=== PATIENT | female | born 1950 | race Caucasian/White ===

== ENCOUNTER → 2016-11-20 | Outpatient (CLI) | payer MEDICARE, BC ==
--- NOTE | 2016-11-20 14:47 | MR ---
EXAMINATION TYPE: MR brain wo con DATE OF EXAM: 11/20/2016 COMPARISON: 09/20/2015 HISTORY: Hx of stroke T1-weighted sagittal, T2, FLAIR, and diffusion axial, and T2 coronal coronal views of the brain are s ubmitted. There is no evidence of acute ischemia on diffusion imaging. There is an area of abnormal signal with in the posterior right parietal lobe which is stable from the previous exam compatible with remote st roke. There is mild generalized degenerative change. Changes of chronic sinusitis with nasal septal deviati on noted. No midline shift or mass effect. Area of possible blooming artifact within the right temporal lobe is stable from the previous exam. This could be vascular or related to previous remote hemorrhage. Susp ect is more likely vascular. Areas of abnormal signal in the basal ganglia bilaterally may represent prominent Virchow-Tai space s or remote tiny lacunar infarctions. Nonspecific white matter changes are seen with a few scattered areas of less than 5 mm abnormal signa l. Partially empty sella turcica noted. Craniocervical junction maintained. IMPRESSION: 1. No acute intracranial process 2. Stable remote-appearing infarct right parietal lobe posteriorly. 3. Nonspecific white matter changes most typical remote microvascular ischemia. 4 chronic sinusitis 5 partially empty sella turcica
== END | disposition home or self-care (01) ==
LOC: RADMRIMAIN 13:25
PROVIDERS: ATTEND Psychiatry & Neurology Neurology
DX: Z09 Encounter for follow-up examination after completed treatment for conditions other than malignant neoplasm (principal); Z86.73 Personal history of transient ischemic attack (TIA), and cerebral infarction without residual deficits
CPT/HCPCS: 70551

== ENCOUNTER → 2016-12-21 | Outpatient (CLI) | payer MEDICARE, BC ==
[2016-12-21 15:10] LABS: Glucose,Whole Blood 80 mg/dL (75-99)
[2016-12-21 15:27] VITALS: BP 114/55; PULSE 73; RESP 16; TEMP 98.3; BMI 40.0
--- NOTE | 2017-01-15 14:35 | P.HPBAR ---
Bariatric H&P - History & Physicial H&P Date: 12/21/16 History & Physicial: Visit/CC: Initial Visit Patient initial contact: Initial weight: 105.715 kg Initial weight in pounds: 233.06 Height: 5 ft 4 in Initial BMI: 39.9 Last weight: Current weight: 105.715 kg Current weight in pounds: 233.00 Current BMI: 40.0 [place] body weight (based on NIH guidelines): 54.431 kg Excess body weight loss: 0.0% The patient is a 66 year-old F who presents for Bariatric Assessment. the patient resents today for initial consultation for sleeve yesterday. She's had lifetime pros obesity. She is developed severe colitis related to morbid obesity. Past Medical History Past Medical History: CVA/TIA, Diabetes Mellitus, Fibromyalgia, Hyperlipidemia, Hypertension, Thyroid Disorder Additional Past Medical History / Comment(s): Hx severe case of Shingles, Osteoporosis, Massive stroke 07/20/2012, neuropathy, Vitamin B12 deficiancy, hypothyroidism, insomnia History of Any Multi-Drug Resistant Organisms: None Reported Past Surgical History: Hysterectomy, Joint Replacement Additional Past Surgical History / Comment(s): Left Knee, right shoulder partial replacment, carpal tunnel right and left, throat surgery for acid reflux Past Anesthesia/Blood Transfusion Reactions: No Reported Reaction Past Psychological History: Anxiety Smoking Status: Never smoker Past Alcohol Use History: None Reported Past Drug Use History: None Reported - Past Family History Brother(s) Family Medical History: CVA/TIA, Myocardial Infarction ([place]) Additional Family Medical History / Comment(s): [place] x2 Surgical - Exam Vital Signs Temp Pulse Resp BP 98.3 F 73 16 114/55 12/21/16 15:08 12/21/16 15:08 12/21/16 15:08 12/21/16 15:08 - General well developed - Eyes PERRL - ENT normal pinna - Neck no masses - Respiratory normal expansion - Cardiovascular Rhythm: regular Bariatric Assessment & Plan Plan: Morbid obesity. Had a lengthy discussion with the patient regarding sleeve gastrectomy. I would over the risks and benefits of procedure. I discussed with her the risk of staple line disruption, scarring or bleeding. Patient was scheduled for EGD. Bariatric Checklist Checklist: Plan: Checklist: EGD: 1. Hiatal hernia: 2. H. Pylori: HgbA1c: Vitamin D: Smoking: Never smoker Primary care physician referral: [facility] Psychiatry clearance: Cardiology clearance: Sleep study: Diet journal: VTE risk score: VTE risk level: Rehab needs at discharge:
== END | disposition home or self-care (01) ==
LOC: BARWHC3 14:32
PROVIDERS: ATTEND Surgery
DX: Z48.815 Encounter for surgical aftercare following surgery on the digestive system (principal); E66.01 Morbid (severe) obesity due to excess calories; Z98.84 Bariatric surgery status
CPT/HCPCS: 99211

== ENCOUNTER → 2017-02-22 | Outpatient (CLI) | payer MEDICARE, BC ==
--- NOTE | 2017-02-22 10:54 | FL ---
EXAMINATION: Cervical and Thoracic Esophagram DATE OF EXAM: 02/22/2017 CLINICAL INDICATION: 66-year-old female gastroesophageal reflux disease, hoarseness for the last 16 m onths. Patient reports prior flap surgery for hiatal hernia. COMPARISON: Total Fluoroscopy Time: 1.6 minutes. Total images: 21 FINDINGS: The swallowing mechanism is normal. There is some possible nodularity in the region of the hypopharyn x with heterogeneous coating. The thoracic portion has a normal course and caliber. There is some blunting of the normal secondary peristaltic waves that results in slight retention of contrast in the esophagus. No significant tertiary waves are seen. The mucosa is normal and no persistent filling defect is encountered. There is focal indentation and possible wrap at the GE junction which should be correlated clinically . No hiatal hernia seen. Gastroesophageal reflux could not be elicited with Valsalva maneuvers. IMPRESSION: 1. Some heterogeneous coating in the region of the hypopharynx. This may be secondary to inflammation or polyps. Correlate with findings during direct visualization. 2. Blunted secondary stripping waves allows for some delay in clearance of contrast from the esophag us. 3. Some deformity at the GE junction suspected to be on a post surgical basis with a wrap. No hiatal hernia. Valsalva maneuver failed to elicit gastroesophageal reflux.
== END ==
LOC: RADFLWHC 07:33
PROVIDERS: ATTEND Surgery
DX: K21.9 Gastro-esophageal reflux disease without esophagitis (principal)
CPT/HCPCS: 74220

== ENCOUNTER 2017-02-23 08:14 | Day surgery (SDC) | payer MEDICARE, BC ==
[2017-02-19 13:18] VITALS: BMI 39.4
[~2017-02-23 08:14] MED LIST: LACTATED RINGERS 1,000 ML IV SCH
[2017-02-23 08:39] VITALS: RESP 18; TEMP 97.8
[2017-02-23] MEDS ORDERED: LIDOCAINE 1% 20 ML VIAL (10MG/ML) FOR IV START INTRADERMA ONE (08:41)
[2017-02-23 08:53] LABS: Glucose,Whole Blood 95 mg/dL (75-99)
[2017-02-23] MEDS ORDERED: LIDOCAINE 1% INJ 10MG/ML (20 ML MDV) ONE (10:30)
[2017-02-23] MEDS ORDERED: PROPOFOL 10 MG/ML 20 ML VIAL IV ONE (10:30)
--- NOTE | 2017-02-23 10:56 | P.GSHP ---
History of Present Illness H&P Date: 02/23/17 Chief Complaint: Epigastric pain This is a 66-year-old female who has complaints of epigastric pain. She was a safer EGD. Her recent esophagram shows no evidence of obstruction or reflux. Past Medical History Past Medical History: CVA/TIA, Diabetes Mellitus, Fibromyalgia, Hyperlipidemia, Hypertension, Osteoarthritis (OA), Sleep Apnea/CPAP/BIPAP, Thyroid Disorder Additional Past Medical History / Comment(s): Hx of shingles, has nerve damage from shingles, CVA 2012 (no residual effects),sleep apnea (no machine). SOB, abdominal pain occasionally from shingles nerve damage, neuropathy xavi feet History of Any Multi-Drug Resistant Organisms: None Reported Past Surgical History: Hernia Repair, Hysterectomy, Joint Replacement Additional Past Surgical History / Comment(s): Left Knee surgery as child, right shoulder partial replacement, carpal tunnel right and left, Hiatal Hernia repair. EGD, colonoscopy Past Anesthesia/Blood Transfusion Reactions: Previous Problems w/ Anesthesia Additional Past Anesthesia/Blood Transfusion Reaction / Comment(s): states told "difficult intubation" but Dr Childers did previous EGD with no problems, pt could not elaborate specifics. Not done at [facility]. Smoking Status: Never smoker - Past Family History Brother(s) Family Medical History: CVA/TIA, Myocardial Infarction ([place]) Additional Family Medical History / Comment(s): [place] x2 Mother Family Medical History: Cancer Medications and Allergies Home Medications Medication Instructions Recorded Confirmed Type Ascorbic Acid [Vitamin C] 500 mg PO DAILY 09/24/16 02/23/17 History Atorvastatin [Lipitor] 40 mg PO DAILY 09/24/16 02/19/17 History Clopidogrel [Plavix] 75 mg PO DAILY 09/24/16 02/23/17 History Ergocalciferol (Vitamin D2) 50,000 unit PO TH 09/24/16 02/19/17 History [Vitamin D2] Gabapentin [Neurontin] 300 mg PO BID 09/24/16 02/19/17 History Levothyroxine Sodium [Tirosint] 88 mcg PO DAILY 09/24/16 02/23/17 History Losartan/Hydrochlorothiazide 1 tab PO DAILY 09/24/16 02/23/17 History [Losartan-Hctz 100-12.5 mg Tab] Metoprolol Tartrate [Lopressor] 50 mg PO DAILY 09/24/16 02/23/17 History Morphine Sulfate [Yomaira] 30 mg PO BID PRN 09/24/16 02/23/17 History Multivitamins, Thera [Multivitamin 1 tab PO DAILY 09/24/16 02/19/17 History (formulary)] Potassium Chloride [K-Tab ER] 10 meq PO BID 09/24/16 02/23/17 History Vitamin E 100 unit PO DAILY 09/24/16 02/19/17 History clonazePAM [Clonazepam] 2 mg PO DAILY PRN 09/24/16 02/23/17 History traZODone HCL [Desyrel] 100 mg PO HS 09/24/16 02/23/17 History amLODIPine BESYLATE [Norvasc] 5 mg PO DAILY 12/24/16 02/23/17 History metFORMIN HCL [Glucophage] 500 mg PO DAILY 12/31/16 02/23/17 History Morphine Sulfate ER [Ms Contin 30 mg PO Q12HR 02/19/17 02/23/17 History 30Mg] Allergies Allergy/AdvReac Type Severity Reaction Status Date / Time ibuprofen [From Motrin] Allergy Unknown Itching, Verified 02/19/17 11:43 Throat swelling milk AdvReac Abdominal Verified 02/19/17 11:43 Pain phenytoin [From Dilantin] AdvReac Rash/Hives Verified 02/19/17 11:43 Arthrotic AdvReac Rash/Hives Uncoded 02/19/17 11:43 Surgical - Exam Vital Signs Temp Pulse Resp BP Pulse Ox 97.8 F 75 18 124/73 96 02/23/17 08:38 02/23/17 08:38 02/23/17 08:38 02/23/17 08:38 02/23/17 08:38 - General well developed, no distress - Eyes PERRL - ENT normal pinna - Neck no masses - Respiratory normal expansion - Cardiovascular Rhythm: regular - Abdomen Mild epigastric tenderness Abdomen: soft Assessment and Plan Plan: Epigastric pain. We'll perform EGD.
--- NOTE | 2017-02-23 10:58 | P.OP ---
Date of Procedure: 02/23/17 Preoperative Diagnosis: Epigastric pain Postoperative Diagnosis: Antral gastritis No evidence of hiatal hernia No evidence of reflux esophagitis Procedure(s) Performed: EGD Anesthesia: MAC Surgeon: Carlos Childers Pathology: other (Antrum) Condition: stable Disposition: PACU Description of Procedure: Patient's placed on the operating table in the lateral position. She received IV sedation. The gastric was placed oropharynx passed in the esophagus into the stomach. Scope was then placed through the pylorus. The first and second portion of the duodenum appeared normal. Scope was then brought back the antrum and this appeared mildly inflamed. The scope was retroflexed there is no evidence of a recurrent hiatal hernia. Patient appears fundoplication wrap located at the distal esophagus. The GE junction was at 40 cm. Due the patient 's complaints of epigastric pain a 20 mm balloon was placed across GE junction. There is known to any stricture. The distal esophagus appeared normal. The proximal esophagus appeared normal. Scope was withdrawn for patient.
[2017-02-23 11:33] VITALS: BP 131/69; PULSE 74
== END 2017-02-23 11:39 | disposition home or self-care (01) ==
LOC: ORWHC2ENDO 08:14
PROVIDERS: ATTEND Surgery
DX: K29.50 Unspecified chronic gastritis without bleeding (principal); R10.13 Epigastric pain; E11.9 Type 2 diabetes mellitus without complications; M79.7 Fibromyalgia; E78.5 Hyperlipidemia, unspecified; I10 Essential (primary) hypertension; M19.90 Unspecified osteoarthritis, unspecified site; G47.30 Sleep apnea, unspecified; E07.9 Disorder of thyroid, unspecified; Z86.73 Personal history of transient ischemic attack (TIA), and cerebral infarction without residual deficits; Z79.84 Long term (current) use of oral hypoglycemic drugs; Z79.02 Long term (current) use of antithrombotics/antiplatelets; Z79.899 Other long term (current) drug therapy; Z88.6 Allergy status to analgesic agent
CPT/HCPCS: 88305; 88342; 43239; 43249; J2001; J2704; C1726

== ENCOUNTER → 2017-03-17 | Outpatient (CLI) | payer MEDICARE, BC ==
--- NOTE | 2017-03-17 12:07 | NM ---
EXAMINATION TYPE: NM hepatobiliary w EF DATE OF EXAM: 03/17/2017 COMPARISON: NONE HISTORY: Abdominal pain, decreased appetite and history of cholelithiasis. TECHNIQUE: After the intravenous administration of 5.6 mCi Tc 99m Mebrofenin hepatobiliary scintigrap hy is performed. Immediate images post injection. FINDINGS: There is satisfactory initial accumulation of tracer by the liver. The gallbladder is visualized wit hin 42 minutes. The small bowel activity is noted within minutes. At one hour 8 ounces of oral ensu re plus is given to mimic CCK and gallbladder ejection fraction is calculated at 86 %, in the normal range. Therefore there is no scintigraphic evidence of cystic or common bile duct obstruction to sug gest acute cholecystitis or gallbladder dyskinesia. IMPRESSION: 1. Visualization of the gallbladder is slightly delayed at 42 minutes, upper limits of normal with cr iteria for cholecystitis of greater than 1 hour. No evidence of acute cholecystitis or cystic duct ob struction. 2. No evidence of biliary dyskinesia with ejection fraction of 86%.
== END | disposition home or self-care (01) ==
LOC: RADNMMAIN 03-16 06:30
PROVIDERS: ATTEND Surgery
DX: K81.1 Chronic cholecystitis (principal)
CPT/HCPCS: 78226; A9537

== ENCOUNTER → 2017-03-17 | Outpatient (CLI) | payer MEDICARE, BC | END | disposition home or self-care (01) | LOC: RADNMMAIN 08:36 | PROVIDERS: ATTEND Surgery | DX: Z53.9 Procedure and treatment not carried out, unspecified reason (principal) ==

== ENCOUNTER 2017-04-20 15:02 | Observation (INO) | payer MEDICARE, BC ==
[2017-04-20] MEDS ORDERED: IPRATROPIUM-ALBUTEROL 3 ML NEB INHALATION STA (16:03)
[2017-04-20 16:25] LABS: Basophils # (A) 0.1 k/uL (0-0.2); Basophils % (A) 0 %; CH 33.4; CHCM 33.3; Eosinophils # (A) 0.1 k/uL (0-0.7); Eosinophils % (A) 1 %; HDW 2.43; HGB 12.4 gm/dL (11.4-16.0); Luc # (Auto) 0.13; Luc % (Auto) 1; Lymphocytes # (A) 2.2 k/uL (1.0-4.8); Lymphocytes % (A) 15 %; MCH 32.2 pg (25.0-35.0); MCHC 31.9 g/dL (31.0-37.0); Macrocytosis Slight; Mean Platelet Volume 7.9; Monocytes # (A) 0.7 k/uL (0-1.0); Monocytes % (A) 5 %; Neutrophils % (A) 78 %; RBC 3.86 m/uL (3.80-5.40); RDW 14.4 % (11.5-15.5); WBC 14.2 k/uL (3.8-10.6); WBC (Perox) 14.76
[2017-04-20 16:33] LABS: Anion Gap 8 mmol/L; Blood Urea Nitrogen 21 mg/dL (7-17); Calcium 10.2 mg/dL (8.4-10.2); Carbon Dioxide 31 mmol/L (22-30); Chloride 100 mmol/L (98-107); Glucose 102 mg/dL (74-99); Non-African American GFR(MDRD) 54 (>60 ml/min/1.73 sqM); Potassium 4.4 mmol/L (3.5-5.1); Sodium 139 mmol/L (137-145)
[2017-04-20 16:39] LABS: INR 0.9 (<1.2)
[2017-04-20 16:40] LABS: Prothrombin Time 9.4 sec (9.0-12.0)
[2017-04-20 16:48] LABS: Partial Thromboplastin Time 20.8 sec (22.0-30.0)
[2017-04-20] MEDS ORDERED: RX INFO: IV CONTRAST WAS GIVEN 1 EACH MISC MISCELLANE PRN (16:56)
--- NOTE | 2017-04-20 17:01 | ED ---
General Adult HPI - General Chief complaint: Upper Respiratory Infection Stated complaint: coughing up blood Time Seen by Provider: 04/20/17 15:57 Source: patient Mode of arrival: ambulatory Limitations: no limitations - History of Present Illness Initial comments: This 66-year-old white female presents with a complaint of hemoptysis. She apparently has had a small amount of bright red blood that she has been bringing up intermittently since 2:00 PM today. She has had occasional cough and occasional shortness of breath. She denies any history of COPD, asthma, or emphysema. She denies any use of tobacco. She further relates that she's had occasional shortness of breath over the past 2 years. She does relate that she' s had some recent sinus congestion and sinus problems. She states that she has had a hoarse voice for the last 1-2 days. She ended up having a laparoscopic cholecystectomy done yesterday at our hospital. She denies any known complications. There is no leg pain or swelling or history of DVT or PE. There is no chest pain or fevers. She called Dr. Childers's office today and they sent her to the ER for further evaluation. - Related Data Home Medications Medication Instructions Recorded Confirmed Ascorbic Acid [Vitamin C] 500 mg PO DAILY 09/24/16 04/20/17 Atorvastatin [Lipitor] 40 mg PO DAILY 09/24/16 04/20/17 Clopidogrel [Plavix] 75 mg PO DAILY 09/24/16 04/20/17 Ergocalciferol (Vitamin D2) 50,000 unit PO TH 09/24/16 04/20/17 [Vitamin D2] Gabapentin [Neurontin] 300 mg PO BID 09/24/16 04/20/17 Losartan/Hydrochlorothiazide 1 tab PO DAILY 09/24/16 04/20/17 [Losartan-Hctz 100-12.5 mg Tab] Metoprolol Tartrate [Lopressor] 75 mg PO BID 09/24/16 04/20/17 Multivitamins, Thera [Multivitamin 1 tab PO DAILY 09/24/16 04/20/17 (formulary)] Potassium Chloride [K-Tab ER] 10 meq PO BID 09/24/16 04/20/17 Vitamin E 100 unit PO DAILY 09/24/16 04/20/17 clonazePAM [Clonazepam] 1 - 2 mg PO HS PRN 09/24/16 04/20/17 traZODone HCL [Desyrel] 100 mg PO HS 09/24/16 04/20/17 amLODIPine BESYLATE [Norvasc] 5 mg PO DAILY 12/24/16 04/20/17 metFORMIN HCL [Glucophage] 500 mg PO DAILY 12/31/16 04/20/17 Morphine Sulfate ER [Ms Contin 30 mg PO Q12HR 02/19/17 04/20/17 30Mg] Levothyroxine Sodium [Synthroid] 88 mcg PO DAILY 04/15/17 04/20/17 Benzonatate [Tessalon Perles] 200 mg PO BID PRN 04/20/17 04/20/17 Morphine Sulfate Ir [Msir] 30 mg PO DAILY PRN 04/20/17 04/20/17 Allergies Allergy/AdvReac Type Severity Reaction Status Date / Time ibuprofen [From Motrin] Allergy Unknown WAS TOLD Verified 04/20/17 16:38 BY NOT TO TAKE- BECAUSE OF HER KIDNEYS milk AdvReac Abdominal Verified 04/20/17 16:38 Pain phenytoin [From Dilantin] AdvReac Rash/Hives Verified 04/20/17 16:38 Arthrotic AdvReac Rash/Hives Uncoded 04/20/17 15:07 Review of Systems ROS Statement: Those systems with pertinent positive or pertinent negative responses have been documented in the HPI. ROS Other: All systems not noted in ROS Statement are negative. Past Medical History Past Medical History: CVA/TIA, Diabetes Mellitus, Fibromyalgia, Hyperlipidemia, Hypertension, Osteoarthritis (OA), Sleep Apnea/CPAP/BIPAP, Thyroid Disorder Additional Past Medical History / Comment(s): Hx of shingles, has nerve damage from shingles, CVA 2012 -SOME RIGHT SIDED WEAKNESS,sleep apnea (no machine). SOB, neuropathy xvai feet, History of Any Multi-Drug Resistant Organisms: None Reported Past Surgical History: Cholecystectomy, Hernia Repair, Hysterectomy, Joint Replacement Additional Past Surgical History / Comment(s): Left Knee surgery as child, right shoulder partial replacement, carpal tunnel right and left, Hiatal Hernia repair. EGD, colonoscopy Past Anesthesia/Blood Transfusion Reactions: Previous Problems w/ Anesthesia Additional Past Anesthesia/Blood Transfusion Reaction / Comment(s): states told "difficult intubation" but Dr Childers did previous EGD with no problems, . Not done at [facility]. SHE STATES THE DIFFICULT INTUBATION WAS AFTER HER STROKE . Past Psychological History: Anxiety, Bipolar, Depression Smoking Status: Never smoker Past Alcohol Use History: None Reported Past Drug Use History: None Reported - Past Family History Brother(s) Family Medical History: CVA/TIA, Myocardial Infarction ([place]) Additional Family Medical History / Comment(s): [place] x2 Mother Family Medical History: Cancer General Exam - General Exam Comments Initial Comments: GENERAL: The patient is well nourished and well hydrated. VITAL SIGNS: Heart rate, blood pressure, respiratory rate reviewed as recorded in nurse's notes. EYES: Pupils are round and reactive. Extraocular movements are intact. No conjunctival / lid redness or swelling. ENT: No external evidence of injury, swelling, or ecchymosis. Airway is patent. Throat is clear. A slight hoarse voice as noted. NECK: Nontender. No swelling or evidence of injury. No subcutaneous emphysema. Trachea is midline. No thyroid mass. HEART: Regular rate and rhythm. Good peripheral pulses. LUNGS/CHEST: Breath sounds clear and equal bilaterally. No rales, rhonchi, or wheezes. No ecchymosis, subcutaneous emphysema, or tenderness. ABDOMEN: Abdomen soft without tenderness. No palpable masses or organomegaly. No peritoneal signs. There are well healing laparoscopic wounds noted to the abdomen. No signs of infection. EXTREMITIES: No extremity tenderness. Normal muscle tone and function. No thoracolumbar tenderness. NEUROLOGIC: Sensation is grossly intact. Cranial nerve exam reveals face is symmetrical, tongue is midline, speech is clear. SKIN: No abrasions or ecchymosis is noted. No induration or masses noted. PSYCHIATRIC: Alert and oriented. Appropriate behavior and judgment. Limitations: no limitations Course Vital Signs 04/20/17 04/20/17 04/20/17 15:04 16:34 17:07 Temperature 98.4 F 97.5 F L Pulse Rate 82 64 85 Respiratory 18 18 Rate Blood Pressure 120/91 120/60 O2 Sat by Pulse 94 L 94 L Oximetry Medical Decision Making - Medical Decision Making The patient was seen and examined. All diagnostics were reviewed. An IV is established. She receives a DuoNeb breathing treatment. Laboratory is reviewed and does show a slight elevation of the white blood cell count as well as elevation of the d-dimer. The patient is strongly requesting an abdominal series x-ray and this is ordered. This does show the possibility of a slight ileus. The chest x-ray shows some chronic changes but no acute process per radiology. The computed tomography scan of the thorax with IV contrast does show evidence of a 5% pneumothorax on the right side but no evidence of pulmonary embolism. The case is discussed with Dr. Calderon and he would like the patient admitted to the hospital and have a repeat chest x-ray and labs in the morning with pulmonary to consult, Dr. Moya. The patient is agreeable. - Lab Data Result diagrams: 04/20/17 16:16 04/20/17 16:16 Lab Results 04/20/17 04/20/17 04/20/17 Range/Units 16:16 16:16 16:16 WBC 14.2 H (3.8-10.6) k/uL RBC 3.86 (3.80-5.40) m/uL Hgb 12.4 (11.4-16.0) gm/dL Hct 39.0 (34.0-46.0) % MCV 101.0 H (80.0-100.0) fL MCH 32.2 (25.0-35.0) pg MCHC 31.9 (31.0-37.0) g/dL RDW 14.4 (11.5-15.5) % Plt Count 204 (150-450) k/uL Neutrophils % 78 % Lymphocytes % 15 % Monocytes % 5 % Eosinophils % 1 % Basophils % 0 % Neutrophils # 11.0 H (1.3-7.7) k/uL Lymphocytes # 2.2 (1.0-4.8) k/uL Monocytes # 0.7 (0-1.0) k/uL Eosinophils # 0.1 (0-0.7) k/uL Basophils # 0.1 (0-0.2) k/uL Macrocytosis Slight PT 9.4 (9.0-12.0) sec INR 0.9 (<1.2) APTT 20.8 L (22.0-30.0) sec D-Dimer 0.93 H (<0.60) mg/L FEU Sodium 139 (137-145) mmol/L Potassium 4.4 (3.5-5.1) mmol/L Chloride 100 (98-107) mmol/L Carbon Dioxide 31 H (22-30) mmol/L Anion Gap 8 mmol/L BUN 21 H (7-17) mg/dL Creatinine 1.02 (0.52-1.04) mg/dL Est GFR (MDRD) Af Amer >60 (>60 ml/min/1.73 sqM) Est GFR (MDRD) Non-Af 54 (>60 ml/min/1.73 sqM) Glucose 102 H (74-99) mg/dL Calcium 10.2 (8.4-10.2) mg/dL Disposition Clinical Impression: Hemoptysis, History of laparoscopic cholecystectomy, Dyspnea, Pneumothorax, Cough Disposition: ADMITTED IP TO THIS [facility] Condition: Fair Time of Disposition: 18:31 Decision Date: 04/20/17 Decision Time: 18:31
--- NOTE | 2017-04-20 17:05 | XR ---
EXAMINATION TYPE: XR chest 2V DATE OF EXAM: 04/20/2017 COMPARISON: None HISTORY: 66-year-old female with hemoptysis TECHNIQUE: PA and lateral views FINDINGS: Rightward patient rotation alters a normal cardiac mediastinal contours. Heart is upper limits of nor mal in size. Mild diffuse interstitial prominence of the chronic appearance. No consolidation or pleu ral effusion seen. Right paratracheal density likely rotational. This can be evaluated on the patient 's scheduled CT. Partially visualized right shoulder arthroplasty. IMPRESSION: Chronic-appearing changes, possible chronic bronchitis/asthma. Right paratracheal density likely proj ectional due to patient rotation. This area can be assessed on the scheduled CT.
--- NOTE | 2017-04-20 17:06 | XR ---
2 view abdomen HISTORY: Pain, coughing up blood 2 views of the abdomen submitted on 3 images. No comparisons There is a spinal curvature present. Heart size may be accentuated by technique, lung bases are clear . No pneumoperitoneum or bowel obstruction. No evident pathologic calcification. Air-filled loops of small and large bowel may be due to ileus. Follow-up as indicated. IMPRESSION: Nonspecific findings as described. Follow-up as indicated.
--- NOTE | 2017-04-20 18:11 | CT ---
EXAMINATION TYPE: CT angio chest DATE OF EXAM: 04/20/2017 COMPARISON: Chest x-ray 04/20/2017 HISTORY: coughing up blood 1 day post op [address] CT DLP: 566.5 mGycm Automated exposure control for dose reduction was used. CONTRAST: CTA scan of the thorax is performed with IV Contrast, patient injected with 80 mL of Visipaque 320, p ulmonary embolism protocol. MIP images are created and reviewed. 3D reconstructed images are create d on an independent workstation and reviewed. FINDINGS: LUNGS: There is a small right-sided pneumothorax present. Estimated pneumothorax only approximately 5 %. The lungs are grossly clear, there is no concerning parenchymal mass or nodule identified. There is no pleural effusion seen. The tracheobronchial tree is patent. AORTA: No additional significant abnormality is seen. MEDIASTINUM: There is satisfactory enhancement of the pulmonary artery and its branches, there is no CT evidence for pulmonary embolism. There are no greater than 1 cm hilar or mediastinal lymph nodes. No pericardial effusion is seen. OTHER: Postop change noted at the gastroesophageal junction.. IMPRESSION: SMALL RIGHT-SIDED PNEUMOTHORAX. No pulmonary embolism.
[2017-04-20] MEDS ORDERED: clonazePAM 1 MG TAB PO PRN (18:35)
[2017-04-20] MEDS ORDERED: MORPHINE SULFATE IR 15 MG TABLET PO PRN (18:35)
[2017-04-20] MEDS ORDERED: BENZONATATE 100 MG CAP PO PRN (18:35)
[2017-04-20] MEDS: IPRATROPIUM-ALBUTEROL 3 ML NEB INHALATION SCH ×4 (19:11→20:24)
[2017-04-20] MEDS ORDERED: traZODone HCL 100 MG TAB PO SCH (21:00)
[2017-04-20] MEDS: GABAPENTIN 300 MG CAP PO SCH (21:26)
[2017-04-20] MEDS: METOPROLOL TARTRATE 25 MG TAB PO SCH (21:26)
[2017-04-20] MEDS: MORPHINE SULFATE ER 30 MG TABLET PO SCH (21:26)
[2017-04-20] MEDS: POTASSIUM CHLORIDE ER 10 MEQ TAB.ER.PRT PO SCH (21:27)
--- NOTE | 2017-04-20 21:50 | P.CNPUL ---
History of Present Illness Consult date: 04/20/17 Reason for consult: pneumothorax History of present illness: A 66-year-old female patient who underwent a laparoscopic cholecystectomy on outpatient basis on 04/19/2017 and she was discharged home to present back to the hospital because of vigorous cough and very limited hemoptysis over she coughed out some minimal amount of bloody mucus around 2 PM today. She was consented and for that reason she presented to the hospital. She is a nonsmoker and she denies having any previous history of COPD or asthma or bronchiectasis. No previous history of DVT or pulmonary embolism. She is obese and she claims that she has been told to be a difficult intubation. I'm not aware whether the intubation process was complicated time of her laparoscopic cholecystectomy however I would like to clarify this further with general surgery or anesthesia. Patient is having some limited sore throat probably related to the orotracheal tube. No epistaxis. No ongoing hemoptysis for now. CAT scan of the chest was done and the burst department and it showed a very tiny 5% pneumothorax on the right. No reported aspiration at time of surgery. The patient has had Michael fundoplication for acid reflux. No fever. No chills. No other complaints otherwise. The patient is actually taking well. She is known to have obstructive sleep apnea and she has not tolerated CPAP therapy in the past. No trauma to the chest. No falls. Review of Systems Full review of system was done and the positive findings are almost above the history of present illness Past Medical History Past Medical History: CVA/TIA, Diabetes Mellitus, Fibromyalgia, Hyperlipidemia, Hypertension, Osteoarthritis (OA), Sleep Apnea/CPAP/BIPAP, Thyroid Disorder Additional Past Medical History / Comment(s): CVA back in 2012 requiring intubation mechanical ventilation and at that time the patient was told to have a difficult airway, shingles, peripheral neuropathy, fibromyalgia, obesity, obstructive sleep apnea nontolerant to CPAP therapy, diabetes mellitus, hyperlipidemia, hypothyroidism, degenerative arthritis, hypertension History of Any Multi-Drug Resistant Organisms: None Reported Past Surgical History: Cholecystectomy, Hernia Repair, Hysterectomy, Joint Replacement Additional Past Surgical History / Comment(s): Left Knee surgery as child, right shoulder partial replacement, carpal tunnel right and left, Hiatal Hernia repair. EGD, colonoscopy Past Anesthesia/Blood Transfusion Reactions: Previous Problems w/ Anesthesia Additional Past Anesthesia/Blood Transfusion Reaction / Comment(s): states told "difficult intubation" but Dr Childers did previous EGD with no problems, . Not done at [facility]. SHE STATES THE DIFFICULT INTUBATION WAS AFTER HER STROKE . Past Psychological History: Anxiety, Bipolar, Depression Smoking Status: Never smoker Past Alcohol Use History: None Reported Past Drug Use History: None Reported - Past Family History Brother(s) Family Medical History: CVA/TIA, Myocardial Infarction ([place]) Additional Family Medical History / Comment(s): [place] x2 Mother Family Medical History: Cancer Medications and Allergies Home Medications Medication Instructions Recorded Confirmed Type Ascorbic Acid [Vitamin C] 500 mg PO DAILY 09/24/16 04/20/17 History Atorvastatin [Lipitor] 40 mg PO DAILY 09/24/16 04/20/17 History Clopidogrel [Plavix] 75 mg PO DAILY 09/24/16 04/20/17 History Ergocalciferol (Vitamin D2) 50,000 unit PO TH 09/24/16 04/20/17 History [Vitamin D2] Gabapentin [Neurontin] 300 mg PO BID 09/24/16 04/20/17 History Losartan/Hydrochlorothiazide 1 tab PO DAILY 09/24/16 04/20/17 History [Losartan-Hctz 100-12.5 mg Tab] Metoprolol Tartrate [Lopressor] 75 mg PO BID 09/24/16 04/20/17 History Multivitamins, Thera [Multivitamin 1 tab PO DAILY 09/24/16 04/20/17 History (formulary)] Potassium Chloride [K-Tab ER] 10 meq PO BID 09/24/16 04/20/17 History Vitamin E 100 unit PO DAILY 09/24/16 04/20/17 History clonazePAM [Clonazepam] 1 - 2 mg PO HS PRN 09/24/16 04/20/17 History traZODone HCL [Desyrel] 100 mg PO HS 09/24/16 04/20/17 History amLODIPine BESYLATE [Norvasc] 5 mg PO DAILY 12/24/16 04/20/17 History metFORMIN HCL [Glucophage] 500 mg PO DAILY 12/31/16 04/20/17 History Morphine Sulfate ER [Ms Contin 30 mg PO Q12HR 02/19/17 04/20/17 History 30Mg] Levothyroxine Sodium [Synthroid] 88 mcg PO DAILY 04/15/17 04/20/17 History Benzonatate [Tessalon Perles] 200 mg PO BID PRN 04/20/17 04/20/17 History Morphine Sulfate Ir [Msir] 30 mg PO DAILY PRN 04/20/17 04/20/17 History Allergies Allergy/AdvReac Type Severity Reaction Status Date / Time ibuprofen [From Motrin] Allergy Unknown WAS TOLD Verified 04/20/17 16:[address] NOT TO TAKE- BECAUSE OF HER KIDNEYS milk AdvReac Abdominal Verified 04/20/17 16:38 Pain phenytoin [From Dilantin] AdvReac Rash/Hives Verified 04/20/17 16:38 Arthrotic AdvReac Rash/Hives Uncoded 04/20/17 15:07 Physical Exam Vitals: Vital Signs Temp Pulse Resp BP Pulse Ox 04/20/17 20:21 66 04/20/17 20:10 68 04/20/17 19:06 97.0 F L 60 18 160/68 96 04/20/17 17:07 97.5 F L 85 18 120/60 94 L 04/20/17 16:44 66 04/20/17 16:34 64 04/20/17 15:04 98.4 F 82 18 120/91 94 L Intake and Output 04/20/17 04/20/17 04/20/17 06:59 14:59 22:59 Other: Weight 102.058 kg Patient Weight 04/21/17 06:59 Weight 102.058 kg Patient is morbidly obese yet she is calm and comfortable no acute distress.Head exam was generally normal. There was no scleral icterus or corneal arcus. Mucous membranes were moist. Neck is short and supple and the patient has significant crowding of the posterior oropharynx and she has a Mallampati class IV. No goiter or neck masses. Lungs sounds show scattered rhonchi and minimal scattered expiratory wheezes. Air entry is equal and symmetrical bilaterally.Cardiac exam revealed the PMI to be normally situated and sized. The rhythm was regular and no extrasystoles were noted during several minutes of auscultation. The first and second heart sounds were normal and physiologic splitting of the second heart sound was noted. There were no murmurs, rubs, clicks, or gallops.Abdominal exam revealed normal bowel sounds. The abdomen was soft, non-tender, and without masses, organomegaly, or appreciable enlargement of the abdominal aorta. Surgical scar over the anterior abdominal wall is dry clean and intact. No direct tenderness. No rebound tenderness. No guarding.Examination of the extremities revealed easily palpable radial, femoral and pedal pulses. There was no cyanosis, clubbing or edema. Neurologically patient is alert and awake 3. No focal neurological deficit.Examination of the skin revealed no evidence of significant rashes, suspicious appearing nevi or other concerning lesions. Results - Laboratory Findings CBC and BMP: 04/20/17 16:16 04/20/17 16:16 PT/INR, D-dimer PT 9.4 sec (9.0-12.0) 04/20/17 16:16 INR 0.9 (<1.2) 04/20/17 16:16 D-Dimer 0.93 mg/L FEU (<0.60) H 04/20/17 16:16 Abnormal lab findings: Abnormal Labs 04/20/17 04/20/17 04/20/17 16:16 16:16 16:16 WBC 14.2 H MCV 101.0 H Neutrophils # 11.0 H APTT 20.8 L D-Dimer 0.93 H Carbon Dioxide 31 H BUN 21 H Glucose 102 H - Diagnostic Findings Chest x-ray: image reviewed CT scan - chest: image reviewed Assessment and Plan Plan: Assessment 1 acute tiny right apical pneumothorax, estimated to be around 5%, likely secondary to cough and traumatic intubation at a time of her laparoscopic cholecystectomy. Is also likely that the intubation itself cause some irritation upper airway resulting into vigorous, subsequent right-sided pneumothorax.out that the patient is presumed to be a difficult intubation. No further information is available regarding any difficulties while intubating this patient at time of her surgery. 2 hemoptysis, minimal secondary to above,currently inactive in stable and the patient is not coughing blood for now. 3 obesity 4fibromyalgia 5 hypertension 6 hyperlipidemia 7 obstructive sleep apnea 8 hypothyroidism 9 remote history of CVA 10 acid reflux status post fundoplication 11 cholecystectomy it was done on 04/19/2017 13 generalized anxiety/bipolar disorder/depression Plan The patient was a short. No need for any further intervention. We'll monitor the chest x-ray to make sure there is no interval progression of the right- sided pneumothorax. Use Tussionex for cough suppression. DuoNeb about treatments around the clock. Provide the patient incentive spirometer. May consider bronchoscopy if there is recurrent hemoptysis. We'll continue to follow.
[2017-04-20] MEDS: CHLORPHEN-HYDROcod 8-10mg/5ml 5 ML ORAL.SYRG PO SCH (23:01)
[2017-04-21] MEDS: IPRATROPIUM-ALBUTEROL 3 ML NEB INHALATION SCH (07:14)
[2017-04-21] MEDS: GABAPENTIN 300 MG CAP PO SCH (07:27)
[2017-04-21] MEDS: METOPROLOL TARTRATE 25 MG TAB PO SCH (07:28)
[2017-04-21] MEDS: MORPHINE SULFATE ER 30 MG TABLET PO SCH (07:28)
[2017-04-21] MEDS: POTASSIUM CHLORIDE ER 10 MEQ TAB.ER.PRT PO SCH (07:29)
[2017-04-21] MEDS ORDERED: LEVOTHYROXINE 88 MCG TAB PO SCH (07:30)
[2017-04-21] MEDS: CHLORPHEN-HYDROcod 8-10mg/5ml 5 ML ORAL.SYRG PO SCH (07:31)
[2017-04-21 07:35] VITALS: BP 135/60; PULSE 70; RESP 16; TEMP 96.8
[2017-04-21] MEDS ORDERED: IPRATROPIUM-ALBUTEROL 3 ML NEB INHALATION SCH (08:00)
[2017-04-21 08:02] LABS: Basophils % (A) 0 %; CH 33.1; CHCM 32.9; Eosinophils # (A) 0.2 k/uL (0-0.7); Eosinophils % (A) 2 %; HCT 34.7 % (34.0-46.0); HGB 11.4 gm/dL (11.4-16.0); Luc # (Auto) 0.08; Luc % (Auto) 1; Lymphocytes # (A) 2.6 k/uL (1.0-4.8); Lymphocytes % (A) 30 %; MCH 33.1 pg (25.0-35.0); MCHC 32.8 g/dL (31.0-37.0); Macrocytosis Slight; Monocytes # (A) 0.6 k/uL (0-1.0); Monocytes % (A) 7 %; Neutrophils # (A) 5.3 k/uL (1.3-7.7); Neutrophils % (A) 60 %; RBC 3.44 m/uL (3.80-5.40); RDW 14.3 % (11.5-15.5); WBC 8.8 k/uL (3.8-10.6); WBC (Perox) 9.49
[2017-04-21 08:44] LABS: ALT 35 U/L (9-52); AST 25 U/L (14-36); Alkaline Phosphatase 67 U/L (38-126); Anion Gap 9 mmol/L; Blood Urea Nitrogen 23 mg/dL (7-17); Calcium 9.7 mg/dL (8.4-10.2); Carbon Dioxide 28 mmol/L (22-30); Chloride 103 mmol/L (98-107); Glucose 92 mg/dL (74-99); Non-African American GFR(MDRD) 58 (>60 ml/min/1.73 sqM); Potassium 3.7 mmol/L (3.5-5.1); Sodium 140 mmol/L (137-145); Total Bilirubin 0.5 mg/dL (0.2-1.3); Total Protein 6.4 g/dL (6.3-8.2)
[2017-04-21] MEDS ORDERED: ENOXAPARIN 40 MG/0.4 ML SYRINGE SQ SCH (09:00)
[2017-04-21] MEDS ORDERED: amLODIPine 5 MG TAB PO SCH (09:00)
[2017-04-21] MEDS ORDERED: HYDROCHLOROTHIAZIDE 12.5 MG CAP PO SCH (09:00)
[2017-04-21] MEDS ORDERED: LOSARTAN 50 MG TAB PO SCH (09:00)
[2017-04-21] MEDS ORDERED: VITAMIN E (DL,TOCOPHERYL ACET) 400 UNIT CAP PO SCH (09:00)
[2017-04-21] MEDS ORDERED: ASCORBIC ACID 500 MG TAB PO SCH (09:00)
[2017-04-21] MEDS ORDERED: ATORVASTATIN 40 MG TAB PO SCH (09:00)
[2017-04-21] MEDS ORDERED: metFORMIN 500 MG TAB PO SCH (09:00)
[2017-04-21] MEDS ORDERED: CLOPIDOGREL 75 MG TAB PO SCH (09:00)
--- NOTE | 2017-04-21 09:21 | XR ---
EXAMINATION TYPE: XR chest 2V DATE OF EXAM: 04/21/2017 COMPARISON: 04/20/2017 HISTORY: 66-year-old female coughing up blood TECHNIQUE: Frontal and lateral views FINDINGS: Heart upper limits of normal in size. Aorta and pulmonary vasculature within normal limits. Mild inte rstitial prominence is unchanged. A small right apical pneumothorax estimated at 5-10% is only seen r etrospectively after noting the CT finding. No pleural effusion. IMPRESSION: Small right apical pneumothorax as seen on CT yesterday. No acute change.
[2017-04-21] MEDS ORDERED: MULTIVITAMINS, THERA 1 EACH TAB PO SCH (12:00)
--- NOTE | 2017-04-21 12:47 | P.GSHP ---
History of Present Illness H&P Date: 04/20/17 66-year-old female who underwent a laparoscopic cholecystectomy on April 19 on an outpatient basis was discharged home came back into the emergency room after patient stated that she developed a vigorous cough. Patient states she was coughing so much she coughed up a scant amount of blood noted in her sputum. Patient came into the emergency room to be evaluated for the above- mentioned symptoms. Patient reports that she has been told in the past she's had difficult intubation. CAT scan of the chest was done it showed a very tiny 5% pneumothorax on the right. No aspiration noted. Patient has had a Michael fundoplication for acid reflux. Patient was admitted to the services of the attending with the pulmonary consultation. - Review of Systems Comment: Essentially unremarkable except as mentioned in the present illness Past Medical History Past Medical History: CVA/TIA, Diabetes Mellitus, Fibromyalgia, Hyperlipidemia, Hypertension, Osteoarthritis (OA), Sleep Apnea/CPAP/BIPAP, Thyroid Disorder Additional Past Medical History / Comment(s): CVA back in 2012 requiring intubation mechanical ventilation and at that time the patient was told to have a difficult airway, shingles, peripheral neuropathy, fibromyalgia, obesity, obstructive sleep apnea nontolerant to CPAP therapy, diabetes mellitus, hyperlipidemia, hypothyroidism, degenerative arthritis, hypertension History of Any Multi-Drug Resistant Organisms: None Reported Past Surgical History: Cholecystectomy, Hernia Repair, Hysterectomy, Joint Replacement Additional Past Surgical History / Comment(s): Left Knee surgery as child, right shoulder partial replacement, carpal tunnel right and left, Hiatal Hernia repair. EGD, colonoscopy Past Anesthesia/Blood Transfusion Reactions: Previous Problems w/ Anesthesia Additional Past Anesthesia/Blood Transfusion Reaction / Comment(s): states told "difficult intubation" but Dr Childers did previous EGD with no problems, . Not done at [facility]. SHE STATES THE DIFFICULT INTUBATION WAS AFTER HER STROKE . Past Psychological History: Anxiety, Bipolar, Depression Smoking Status: Never smoker Past Alcohol Use History: None Reported Past Drug Use History: None Reported - Past Family History Brother(s) Family Medical History: CVA/TIA, Myocardial Infarction ([place]) Additional Family Medical History / Comment(s): [place] x2 Mother Family Medical History: Cancer Medications and Allergies Home Medications Medication Instructions Recorded Confirmed Type Ascorbic Acid [Vitamin C] 500 mg PO DAILY 09/24/16 04/20/17 History Atorvastatin [Lipitor] 40 mg PO DAILY 09/24/16 04/20/17 History Clopidogrel [Plavix] 75 mg PO DAILY 09/24/16 04/20/17 History Ergocalciferol (Vitamin D2) 50,000 unit PO TH 09/24/16 04/20/17 History [Vitamin D2] Gabapentin [Neurontin] 300 mg PO BID 09/24/16 04/20/17 History Losartan/Hydrochlorothiazide 1 tab PO DAILY 09/24/16 04/20/17 History [Losartan-Hctz 100-12.5 mg Tab] Metoprolol Tartrate [Lopressor] 75 mg PO BID 09/24/16 04/20/17 History Multivitamins, Thera [Multivitamin 1 tab PO DAILY 09/24/16 04/20/17 History (formulary)] Potassium Chloride [K-Tab ER] 10 meq PO BID 09/24/16 04/20/17 History Vitamin E 100 unit PO DAILY 09/24/16 04/20/17 History clonazePAM [Clonazepam] 1 - 2 mg PO HS PRN 09/24/16 04/20/17 History traZODone HCL [Desyrel] 100 mg PO HS 09/24/16 04/20/17 History amLODIPine BESYLATE [Norvasc] 5 mg PO DAILY 12/24/16 04/20/17 History metFORMIN HCL [Glucophage] 500 mg PO DAILY 12/31/16 04/20/17 History Morphine Sulfate ER [Ms Contin 30 mg PO Q12HR 02/19/17 04/20/17 History 30Mg] Levothyroxine Sodium [Synthroid] 88 mcg PO DAILY 04/15/17 04/20/17 History Benzonatate [Tessalon Perles] 200 mg PO BID PRN 04/20/17 04/20/17 History Morphine Sulfate Ir [Msir] 30 mg PO DAILY PRN 04/20/17 04/20/17 History Allergies Allergy/AdvReac Type Severity Reaction Status Date / Time ibuprofen [From Motrin] Allergy Unknown WAS TOLD Verified 04/20/17 16:38 BY NOT TO TAKE- BECAUSE OF HER KIDNEYS milk AdvReac Abdominal Verified 04/20/17 16:38 Pain phenytoin [From Dilantin] AdvReac Rash/Hives Verified 04/20/17 16:38 Arthrotic AdvReac Rash/Hives Uncoded 04/20/17 15:07 Surgical - Exam Vital Signs Temp Pulse Resp BP Pulse Ox 98.4 F 82 18 120/91 94 L 04/20/17 15:04 04/20/17 15:04 04/20/17 15:04 04/20/17 15:04 04/20/17 15:04 GENERAL APPEARANCE: Pleasant 66-year-old female patient is alert, oriented, in no acute distress. VITAL SIGNS: Reviewed HEENT: Head is normocephalic and atraumatic. Pupils are equal and reactive. The nares are patent. Oropharynx is clear without lesions. NECK: Supple without lymphadenopathy. Traches midline. HEART: S1, S2. Regular rate and rhythm. No murmur noted denying chest pain LUNGS: No crackles or wheezes are heard. Adequate air movement bilaterally no cough noted ABDOMEN: Soft, nontender, nondistended with good bowel sounds. No peritoneal signs. No palpable organomegaly or masses. EXTREMITIES: Normal skin color and turgor. No cyanosis, rash, ulceration, clubbing or edema. Radial pedal pulses are 2/4 bilaterally. NEUROLOGICAL: No focal deficits. Strength and sensation are grossly intact. Results - Labs 04/21/17 07:38 04/21/17 07:38 Abnormal Lab Results - Last 24 Hours (Table) 04/20/17 04/20/17 04/20/17 Range/Units 16:16 16:16 16:16 WBC 14.2 H (3.8-10.6) k/uL RBC (3.80-5.40) m/uL MCV 101.0 H (80.0-100.0) fL Neutrophils # 11.0 H (1.3-7.7) k/uL APTT 20.8 L (22.0-30.0) sec D-Dimer 0.93 H (<0.60) mg/L FEU Carbon Dioxide 31 H (22-30) mmol/L BUN 21 H (7-17) mg/dL Glucose 102 H (74-99) mg/dL 04/21/17 04/21/17 Range/Units 07:38 07:38 WBC (3.8-10.6) k/uL RBC 3.44 L (3.80-5.40) m/uL MCV 101.0 H (80.0-100.0) fL Neutrophils # (1.3-7.7) k/uL APTT (22.0-30.0) sec D-Dimer (<0.60) mg/L FEU Carbon Dioxide (22-30) mmol/L BUN 23 H (7-17) mg/dL Glucose (74-99) mg/dL Diabetes panel 04/20/17 04/21/17 Range/Units 16:16 07:38 Sodium 139 140 (137-145) mmol/L Potassium 4.4 3.7 (3.5-5.1) mmol/L Chloride 100 103 (98-107) mmol/L Carbon Dioxide 31 H 28 (22-30) mmol/L BUN 21 H 23 H (7-17) mg/dL Creatinine 1.02 0.96 (0.52-1.04) mg/dL Glucose 102 H 92 (74-99) mg/dL Calcium 10.2 9.7 (8.4-10.2) mg/dL AST 25 (14-36) U/L ALT 35 (9-52) U/L Alkaline Phosphatase 67 (38-126) U/L Total Protein 6.4 (6.3-8.2) g/dL Albumin 3.8 (3.5-5.0) g/dL Calcium panel 04/20/17 04/21/17 Range/Units 16:16 07:38 Calcium 10.2 9.7 (8.4-10.2) mg/dL Albumin 3.8 (3.5-5.0) g/dL Pituitary panel 04/20/17 04/21/17 Range/Units 16:16 07:38 Sodium 139 140 (137-145) mmol/L Potassium 4.4 3.7 (3.5-5.1) mmol/L Chloride 100 103 (98-107) mmol/L Carbon Dioxide 31 H 28 (22-30) mmol/L BUN 21 H 23 H (7-17) mg/dL Creatinine 1.02 0.96 (0.52-1.04) mg/dL Glucose 102 H 92 (74-99) mg/dL Calcium 10.2 9.7 (8.4-10.2) mg/dL Adrenal panel 04/20/17 04/21/17 Range/Units 16:16 07:38 Sodium 139 140 (137-145) mmol/L Potassium 4.4 3.7 (3.5-5.1) mmol/L Chloride 100 103 (98-107) mmol/L Carbon Dioxide 31 H 28 (22-30) mmol/L BUN 21 H 23 H (7-17) mg/dL Creatinine 1.02 0.96 (0.52-1.04) mg/dL Glucose 102 H 92 (74-99) mg/dL Calcium 10.2 9.7 (8.4-10.2) mg/dL Total Bilirubin 0.5 (0.2-1.3) mg/dL AST 25 (14-36) U/L ALT 35 (9-52) U/L Alkaline Phosphatase 67 (38-126) U/L Total Protein 6.4 (6.3-8.2) g/dL Albumin 3.8 (3.5-5.0) g/dL Assessment and Plan Assessment: Impression Present on admission frequent cough and traumatic intubation at the time of laparoscopic cholecystectomy with scant amount hemoptysis suspect due to acute tiny right apical pneumothorax estimated 5% History of prior difficulty intubation with surgical procedures Obesity BMI 38 A recent laparoscopic cholecystectomy done April 19 Obstructive sleep apnea Acid reflux status post fundoplication Plan Continue recommendations by pulmonary service Chest x-ray repeat in the morning Incentive spirometer use as directed prepped for probable discharge The above impression and plan of care have been discussed and directed by signing physician. Michaela Rodriguez nurse practitioner acting as scribe for signing physician.
--- NOTE | 2017-04-21 12:55 | P.DS ---
Providers Date of admission: 04/20/17 18:32 Expected date of discharge: 04/21/17 Attending physician: Carlos Hinton Consults: 04/20/17 18:32 Consult Physician Routine Consulting Provider: Vic Moya Consult Reason/Comments: pneumothorax, hemoptysis Do you want consulting provider notified?: Yes Primary care physician: Catrina Beatty [place] [facility] Course: 66-year-old female who underwent a laparoscopic cholecystectomy on April 19 for acute cholecystitis. Presented back to the emergency room after patient developed a persistent dry nonproductive cough. Patient states she felt short of breath with a Scant amount of bloody sputum noted. Pulmonary was consult that they did participate in the plan of care. CAT scan of the chest did show acute tiny right apical pneumothorax estimated 5%. The right apical pneumothorax was felt to be due to coughing and traumatic intubation at the time of left scopic cholecystectomy. The symptoms resolved and a repeat chest x -ray done on April 21 showed a small right apical pneumothorax estimated 5-10 %. Pulmonary indicated that the patient was felt to be appropriate to be discharged home. There was no further episodes of coughing up any blood. Occasional dry nonproductive cough noted. Patient was felt to be stable and appropriate proceed with a discharge to home Impression Present on admission frequent cough and traumatic intubation at the time of laparoscopic cholecystectomy with scant amount hemoptysis suspect due to acute tiny right apical pneumothorax estimated 5% History of prior difficulty intubation with surgical procedures Morbid Obesity BMI 38 A recent laparoscopic cholecystectomy done April 19 Obstructive sleep apnea Acid reflux status post fundoplication The above impression and plan of care have been discussed and directed by signing physician. Michaela Rodriguez nurse practitioner acting as scribe for signing physician. Patient Condition at Discharge: Fair Plan - Discharge Summary Discharge Rx Participant: No New Discharge Prescriptions: New Levofloxacin [Levaquin] 500 mg PO DAILY #7 tab No Action traZODone HCL [Desyrel] 100 mg PO HS clonazePAM [Clonazepam] 1 - 2 mg PO HS PRN PRN Reason: Anxiety Vitamin E 100 unit PO DAILY Potassium Chloride [K-Tab ER] 10 meq PO BID Multivitamins, Thera [Multivitamin (formulary)] 1 tab PO DAILY Metoprolol Tartrate [Lopressor] 75 mg PO BID Losartan/Hydrochlorothiazide [Losartan-Hctz 100-12.5 mg Tab] 1 tab PO DAILY Gabapentin [Neurontin] 300 mg PO BID Ergocalciferol (Vitamin D2) [Vitamin D2] 50,000 unit PO TH Clopidogrel [Plavix] 75 mg PO DAILY Atorvastatin [Lipitor] 40 mg PO DAILY Ascorbic Acid [Vitamin C] 500 mg PO DAILY amLODIPine BESYLATE [Norvasc] 5 mg PO DAILY metFORMIN HCL [Glucophage] 500 mg PO DAILY Morphine Sulfate ER [Ms Contin 30Mg] 30 mg PO Q12HR Levothyroxine Sodium [Synthroid] 88 mcg PO DAILY Morphine Sulfate Ir [Msir] 30 mg PO DAILY PRN PRN Reason: Breakthrough Pain Benzonatate [Tessalon Perles] 200 mg PO BID PRN PRN Reason: Cough Discharge Medication List Ascorbic Acid [Vitamin C] 500 mg PO DAILY 09/24/16 [History] Atorvastatin [Lipitor] 40 mg PO DAILY 09/24/16 [History] Clopidogrel [Plavix] 75 mg PO DAILY 09/24/16 [History] Ergocalciferol (Vitamin D2) [Vitamin D2] 50,000 unit PO TH 09/24/16 [History] Gabapentin [Neurontin] 300 mg PO BID 09/24/16 [History] Losartan/Hydrochlorothiazide [Losartan-Hctz 100-12.5 mg Tab] 1 tab PO DAILY [History] Metoprolol Tartrate [Lopressor] 75 mg PO BID 09/24/16 [History] Multivitamins, Thera [Multivitamin (formulary)] 1 tab PO DAILY 09/24/16 [History ] Potassium Chloride [K-Tab ER] 10 meq PO BID 09/24/16 [History] Vitamin E 100 unit PO DAILY 09/24/16 [History] clonazePAM [Clonazepam] 1 - 2 mg PO HS PRN 09/24/16 [History] traZODone HCL [Desyrel] 100 mg PO HS 09/24/16 [History] amLODIPine BESYLATE [Norvasc] 5 mg PO DAILY 12/24/16 [History] metFORMIN HCL [Glucophage] 500 mg PO DAILY 12/31/16 [History] Morphine Sulfate ER [Ms Contin 30Mg] 30 mg PO Q12HR 02/19/17 [History] Levothyroxine Sodium [Synthroid] 88 mcg PO DAILY 04/15/17 [History] Benzonatate [Tessalon Perles] 200 mg PO BID PRN 04/20/17 [History] Morphine Sulfate Ir [Msir] 30 mg PO DAILY PRN 04/20/17 [History] Levofloxacin [Levaquin] 500 mg PO DAILY #7 tab 04/21/17 [Rx] Follow up Appointment(s)/Referral(s): Carlos Hinton MD [STAFF PHYSICIAN] - 1 Week Care Plan Goals (MU): Continue postop surgical care as directed Keep scheduled appointment with dr hinton Return to the emergency room any further episodes of coughing up blood or increased shortness of breath Discharge Disposition: HOME SELF-CARE
--- NOTE | 2017-04-21 14:24 | P.PN ---
Subjective Progress Note Date: 04/21/17 Principal diagnosis: Minimal hemoptysis, acute tiny right apical pneumothorax approximately 5% secondary to cough and traumatic intubation. A 66-year-old female patient who underwent a laparoscopic cholecystectomy on outpatient basis on 04/19/2017 and she was discharged home to present back to the hospital because of vigorous cough and very limited hemoptysis over she coughed out some minimal amount of bloody mucus around 2 PM today. She was consented and for that reason she presented to the hospital. She is a nonsmoker and she denies having any previous history of COPD or asthma or bronchiectasis. No previous history of DVT or pulmonary embolism. She is obese and she claims that she has been told to be a difficult intubation. I'm not aware whether the intubation process was complicated time of her laparoscopic cholecystectomy however I would like to clarify this further with general surgery or anesthesia. Patient is having some limited sore throat probably related to the orotracheal tube. No epistaxis. No ongoing hemoptysis for now. CAT scan of the chest was done and the burst department and it showed a very tiny 5% pneumothorax on the right. No reported aspiration at time of surgery. The patient has had Michael fundoplication for acid reflux. No fever. No chills. No other complaints otherwise. The patient is actually taking well. She is known to have obstructive sleep apnea and she has not tolerated CPAP therapy in the past. No trauma to the chest. No falls. On 04/23/2017 patient seen in follow-up. She is doing well, although does complain of some dry mouth and soreness of the throat. She has had no further episodes of hemoptysis overnight. He is still complaining of some nasal congestion, the cough has subsided, some residual cough with production of green sputum. Has been afebrile, she is on room air at 91%. Hemodynamics are stable, lung sounds are clear, no wheezes, no rhonchi or rales auscultated. Chest x-ray from 04/21/2017 has been reviewed by Dr. Moya, shows small right apical pneumothorax, no acute change. Objective - Vital Signs Vital signs: Vital Signs Temp 96.8 F L 04/21/17 07:00 Pulse 72 04/21/17 07:24 Resp 16 04/21/17 07:00 BP 135/60 04/21/17 07:00 Pulse Ox 91 L 04/21/17 07:00 Intake & Output 04/20/17 04/21/17 04/21/17 18:59 06:59 18:59 Weight 102.058 kg 102.058 kg Other: # Voids 2 1 - Exam Patient is morbidly obese yet she is calm and comfortable no acute distress.Head exam was generally normal. There was no scleral icterus or corneal arcus. Mucous membranes were moist. Neck is short and supple and the patient has significant crowding of the posterior oropharynx and she has a Mallampati class IV. No goiter or neck masses. Lungs sounds clear to auscultation today. Air entry is equal and symmetrical bilaterally.Cardiac exam revealed the PMI to be normally situated and sized. The rhythm was regular and no extrasystoles were noted during several minutes of auscultation. The first and second heart sounds were normal and physiologic splitting of the second heart sound was noted. There were no murmurs, rubs, clicks, or gallops.Abdominal exam revealed normal bowel sounds. The abdomen was soft, non- tender, and without masses, organomegaly, or appreciable enlargement of the abdominal aorta. Surgical scar over the anterior abdominal wall is dry clean and intact. No direct tenderness. No rebound tenderness. No guarding.Examination of the extremities revealed easily palpable radial, femoral and pedal pulses. There was no cyanosis, clubbing or edema. Neurologically patient is alert and awake 3. No focal neurological deficit.Examination of the skin revealed no evidence of significant rashes, suspicious appearing nevi or other concerning lesions. - Labs CBC & Chem 7: 04/21/17 07:38 04/21/17 07:38 Labs: Abnormal Lab Results - Last 24 Hours (Table) 04/20/17 04/20/17 04/20/17 Range/Units 16:16 16:16 16:16 WBC 14.2 H (3.8-10.6) k/uL RBC (3.80-5.40) m/uL MCV 101.0 H (80.0-100.0) fL Neutrophils # 11.0 H (1.3-7.7) k/uL APTT 20.8 L (22.0-30.0) sec D-Dimer 0.93 H (<0.60) mg/L FEU Carbon Dioxide 31 H (22-30) mmol/L BUN 21 H (7-17) mg/dL Glucose 102 H (74-99) mg/dL 04/21/17 04/21/17 Range/Units 07:38 07:38 WBC (3.8-10.6) k/uL RBC 3.44 L (3.80-5.40) m/uL MCV 101.0 H (80.0-100.0) fL Neutrophils # (1.3-7.7) k/uL APTT (22.0-30.0) sec D-Dimer (<0.60) mg/L FEU Carbon Dioxide (22-30) mmol/L BUN 23 H (7-17) mg/dL Glucose (74-99) mg/dL Assessment and Plan Plan: Assessment 1 acute tiny right apical pneumothorax, estimated to be around 5%, likely secondary to cough and traumatic intubation at a time of her laparoscopic cholecystectomy. Is also likely that the intubation itself cause some irritation upper airway resulting into vigorous, subsequent right-sided pneumothorax.out that the patient is presumed to be a difficult intubation. No further information is available regarding any difficulties while intubating this patient at time of her surgery. Repeat chest x-ray on 04/21/2017 shows no acute change. 2 hemoptysis, minimal secondary to above,currently inactive in stable and the patient is not coughing blood for now. 3 obesity 4fibromyalgia 5 hypertension 6 hyperlipidemia 7 obstructive sleep apnea 8 hypothyroidism 9 remote history of CVA 10 acid reflux status post fundoplication 11 cholecystectomy it was done on 04/19/2017 13 generalized anxiety/bipolar disorder/depression Plan Patient is doing well, complaining of some sore throat. No further episodes of hemoptysis were noted. Some nasal congestion, off has improved, but residual cough is present with production of some green sputum. Otherwise no worsening dyspnea. She stable for discharge home today. Inguinal home and outpatient course of Augmentin for her upper respiratory symptoms. I performed a history & physical examination of the patient and discussed their management with my nurse practitioner, Aye Flanagan. I reviewed the nurse practitioner's note and agree with the documented findings and plan of care. Lung sounds are clear to auscultation. The findings and the impression was discussed with the patient. I attest to the documentation by the nurse practitioner. Time with Patient: Less than 30
[2017-04-22] MEDS ORDERED: ERGOCALCIFEROL 50,000 UNIT CAP PO SCH (09:00)
== END 2017-04-21 13:21 | disposition home or self-care (01) ==
LOC: EC 15:02 → 4MS4W 18:32 → INTOOBSV 18:32 → 4MS4W 19:05
PROVIDERS: ADMIT Surgery; ATTEND Surgery
DX: R04.2 Hemoptysis (principal); R05 Cough; J95.811 Postprocedural pneumothorax; Z68.38 Body mass index [BMI] 38.0-38.9, adult; E66.01 Morbid (severe) obesity due to excess calories; G47.33 Obstructive sleep apnea (adult) (pediatric); R06.02 Shortness of breath; R68.2 Dry mouth, unspecified; M79.7 Fibromyalgia; R09.81 Nasal congestion; E78.5 Hyperlipidemia, unspecified; I10 Essential (primary) hypertension; M19.90 Unspecified osteoarthritis, unspecified site; J02.9 Acute pharyngitis, unspecified; E03.9 Hypothyroidism, unspecified; E11.42 Type 2 diabetes mellitus with diabetic polyneuropathy; F41.1 Generalized anxiety disorder; F31.9 Bipolar disorder, unspecified; R79.89 Other specified abnormal findings of blood chemistry; D72.829 Elevated white blood cell count, unspecified; T88.4XXA Failed or difficult intubation, initial encounter; Z86.73 Personal history of transient ischemic attack (TIA), and cerebral infarction without residual deficits; Z90.49 Acquired absence of other specified parts of digestive tract; Z88.8 Allergy status to other drugs, medicaments and biological substances; Z91.011 Allergy to milk products; Z88.6 Allergy status to analgesic agent; Z79.02 Long term (current) use of antithrombotics/antiplatelets; Z79.899 Other long term (current) drug therapy; Z79.891 Long term (current) use of opiate analgesic; Z79.84 Long term (current) use of oral hypoglycemic drugs
CPT/HCPCS: 99285; 96372; 36415; 94640 ×2; 93005; 85379; 80053; 80048; 85025 ×2; 85610; 85730; 71020 ×2; 74020; 71275; G0378 ×2; Q9967; J1650

== ENCOUNTER → 2017-07-26 | Outpatient (CLI) | payer MEDICARE, BC ==
--- NOTE | 2017-07-26 12:31 | CT ---
EXAMINATION TYPE: CT neck chest w con DATE OF EXAM: 07/26/2017 9:47 AM COMPARISON: CT chest 04/20/2017 HISTORY: Patient complains of difficulty swallowing and difficulty breathing. CT DLP: 1332 mGycm Automated exposure control for dose reduction was used. CONTRAST: CT scan of the neck and chest is performed following with IV Contrast, patient injected with 100 mL o f Omnipaque 300. Axial images are obtained, coronal and sagittal reformatted images are reviewed. FINDINGS: There is some artifact present due to patient's shoulder prosthesis. Skull base is normal. Airway: Level the true and false cords is normal. No evident airway obstruction. No adenopathy. Parotid/submandibular glands: No gross abnormality seen. Carotid/Vascular Structures: Carotid artery calcification is present at the carotid bulb on the left, there is likely some stenosis . Osseous Structures: Degenerative disc disease present in the visualized spine. Other: There is postop change noted at the gastroesophageal junction. Calcified left hilar splenic le onofre measures 12 mm may represent small aneurysm. Is no evident lung mass, no pleural effusion or per icardial effusion, no endobronchial lesion or evident airspace disease. Liver shows low attenuation p ossibly due to hepatic steatosis. IMPRESSION: Postop changes. Artifact as described. Correlate for possible left carotid stenosis. Add itional findings above.
== END | disposition home or self-care (01) ==
LOC: RADCTMAIN 08:23
PROVIDERS: ATTEND Internal Medicine Critical Care Medicine
DX: D73.89 Other diseases of spleen (principal); R06.00 Dyspnea, unspecified; Z98.890 Other specified postprocedural states
CPT/HCPCS: 82565; 84436; 84443; 84520; 84480; 70491; 71260; 36415; Q9967

== ENCOUNTER 2017-07-27 10:36 | Day surgery (SDC) | payer MEDICARE, BC ==
[2017-07-23 11:23] VITALS: BMI 39.4
[~2017-07-27 10:36] MED LIST changes: +ALBUTEROL NEB (CONC) 2.5 MG/0.5 ML INHALATION ONE; +LACTATED RINGERS 1,000 ML IV ONE; +LIDOCAINE 1% 20 ML VIAL (10MG/ML) FOR IV START INTRADERMA PRN; +LIDOCAINE 2% (PF) 20 MG/ML 2 ML AMP INHALATION ONE; +Pre Op ABX Message 1 EACH MISC MISCELLANE ONE
[2017-07-27 11:32] VITALS: TEMP 98.2
[2017-07-27 11:35] LABS: Glucose,Whole Blood 101 mg/dL (75-99)
[2017-07-27] MEDS ORDERED: GLYCOPYRROLATE 0.2 MG/ML 2 ML VIAL ONE (11:58)
[2017-07-27] MEDS ORDERED: MIDAZOLAM 2 MG/2 ML VIAL ONE (11:58)
[2017-07-27] MEDS ORDERED: KETAMINE 10 MG/ML 20 ML VIAL ONE (11:58)
[2017-07-27] MEDS ORDERED: PROPOFOL 10 MG/ML 20 ML VIAL IV ONE (11:58)
[2017-07-27] MEDS ORDERED: LIDOCAINE 1% INJ 10MG/ML (20 ML MDV) ONE (11:58)
[2017-07-27] MEDS ORDERED: fentaNYL (PF) 50 MCG/ML 2 ML AMP ONE (11:58)
[2017-07-27] MEDS ORDERED: diphenhydrAMINE 50 MG/ML 1 ML VIAL ONE (11:58)
[2017-07-27] MEDS ORDERED: LIDOCAINE 2% INJ 20 MG/ML INTRATRACH ONE (12:13)
--- NOTE | 2017-07-27 12:16 | P.PCN ---
Date of Procedure: 07/27/17 Preoperative Diagnosis: dyspnea, inspiratory stridor Postoperative Diagnosis: 1 tracheobronchomalacia 2 normal vocal cords 3 dynamic obstruction of the upper airway consistent with obstructive sleep apnea 4 mucosa inflammatory changes involving the right middle lobe, BAL lavage of the RML done Procedure(s) Performed: Flexible bronchoscopy, bronchial alveolar lavage Anesthesia: MAC Surgeon: Vic Moya IV fluids (ml): 0 Pathology: other Condition: stable Disposition: same day Indications for Procedure: Dyspnea Operative Findings: This procedure was done under monitored anesthesia care. Anesthetic agents was administered by anesthesia the bedside. After achieving adequate sedation, the flexible bronchoscope was inserted to the left nostril was advanced into the upper airway. The posterior oropharynx was quite narrowed and there was evidence of dynamic obstruction consistent with obstructive sleep apnea. A jaw left was done and airway patency was achieved. Epiglottis was identified. The various structures in the upper airways were visualized including the epiglottis , arytenoids, true and false vocal cords. All of these upper airway structures were within normal limits. No nodules pain no lesions. No evidence of any paradoxic vocal cord movement. Normal abduction and adduction of the vocal cords was seen. Following that, a total of 2 mL of 1% lidocaine was applied to the vocal cords and the bronchoscope was advanced into the upper trachea. Immediately, at the level of the subglottic trachea, there was evidence of significant amount of tracheal bronchomalacia with dynamic obstruction of the tracheal fox mainly due to the mobility of the membranous trachea. The patient had normal airway dimensions and caliber during expiratory maneuvers. With exhalation and cough and the patient's airway gets significantly narrowed and there is significant reduction of the airway caliber, probably 80% obstruction. Airway inspection was done and the visualized airways included the trachea, bilateral mainstem bronchi, right upper lobe bronchus, bronchus intermedius, right middle lobe bronchus, right lower lobe bronchus, left upper lobe bronchus and left lower lobe bronchus along with various segments and subsegments. No endobronchial tumors or lesions identified. There was some mucosal inflammatory changes involving the right middle lobe bronchus. The mucosa was slightly erythematous and inflamed. There flexible bronchoscope was wedged into the lateral segment of the lingula and the bronchioloalveolar lavage was done. A total of 60 mL of fluid was infused and 20 mL was suctioned back. The aspirate was nonbloody. Airway inspection was completed and there was evidence of bronchomalacia throughout the patient's airways involving even the various segments of the lower lobes bilaterally. At the end of the procedure, therapeutic it was suctioning was done and the bronchoscope was removed and the patient was transferred recovery in stable condition. Impression #1 diffuse tracheal bronchomalacia #2 normal vocal cords #3 bronchioloalveolar lavage of the right middle lobe was done.
[2017-07-27 12:41] VITALS: BP 114/76; PULSE 81; RESP 18
[2017-07-27 15:54] LABS: Appearance,BF Cloudy; Color,BF Red; Mononuclear WBC,Body Fluid 97 %; Nucleated Cells, Body Fluid 6800 /uL; Polynuclear WBC,Body Fluid 3 %; RBC, Body Fluid 1950 /uL; Total Cells Counted,Body Fluid 100
== END 2017-07-27 13:24 | disposition home or self-care (01) ==
LOC: ORWHC2ENDO 10:36
PROVIDERS: ATTEND Internal Medicine Critical Care Medicine
DX: J98.09 Other diseases of bronchus, not elsewhere classified (principal); J39.8 Other specified diseases of upper respiratory tract; G47.33 Obstructive sleep apnea (adult) (pediatric); Z99.89 Dependence on other enabling machines and devices; Z91.19 Patient's noncompliance with other medical treatment and regimen; K21.9 Gastro-esophageal reflux disease without esophagitis; M19.90 Unspecified osteoarthritis, unspecified site; E78.5 Hyperlipidemia, unspecified; M79.7 Fibromyalgia; D68.9 Coagulation defect, unspecified; E03.9 Hypothyroidism, unspecified; E66.9 Obesity, unspecified; Z68.38 Body mass index [BMI] 38.0-38.9, adult; E11.42 Type 2 diabetes mellitus with diabetic polyneuropathy; I10 Essential (primary) hypertension; F41.9 Anxiety disorder, unspecified; F31.9 Bipolar disorder, unspecified; N28.9 Disorder of kidney and ureter, unspecified; Z79.890 Hormone replacement therapy; Z79.891 Long term (current) use of opiate analgesic; Z79.899 Other long term (current) drug therapy; Z79.84 Long term (current) use of oral hypoglycemic drugs; Z79.02 Long term (current) use of antithrombotics/antiplatelets; Z79.1 Long term (current) use of non-steroidal anti-inflammatories (NSAID); Z88.6 Allergy status to analgesic agent; Z88.8 Allergy status to other drugs, medicaments and biological substances; Z86.73 Personal history of transient ischemic attack (TIA), and cerebral infarction without residual deficits; Z77.22 Contact with and (suspected) exposure to environmental tobacco smoke (acute) (chronic); Z98.51 Tubal ligation status
CPT/HCPCS: 94640; 87798 ×3; 87496; 87498; 87529; 88108; 88305; 89050; 87252; 87502; 87634; 87070; 87205; 87116; 87102; 87206; 31624; J2001 ×3; J2250; J1200; J3010; J2704

== ENCOUNTER → 2018-05-17 | Outpatient (CLI) | payer MEDICARE, BC ==
--- NOTE | 2018-05-17 18:14 | MR ---
EXAMINATION TYPE: MR brain wo con DATE OF EXAM: 05/17/2018 COMPARISON: 11/20/2016 HISTORY: History of stroke / Recent TIA CONTRAST: Performed utilizing 0 mL intravenous Gadavist gadolinium contrast. TECHNIQUE: Multiplanar, multiecho imaging on a 3.0 Analia magnet is performed through the brain. Stud y is performed within 24 hours of arrival to the hospital. The craniovertebral junction is normal. The pituitary is normal. Diffusion-weighted imaging is performed. No abnormal hyperintensity is present to suggest an acute i ntracranial infarct or acute ischemic change. No suspicious changes to suggest acute ischemia on MRI is evident. Old cortical infarct of the posterior medial right temporal lobe is present. This is stable from comp arison. There are multiple scattered subcortical and deep white matter punctate hyperintensities on i nversion recovery weighted sequences which are nonspecific but can be related to microvascular ischem ic change. Differential diagnosis should include multiple sclerosis. A focal area of white matter jeevan nge in the left cerebellar peduncle may have resolved over the interval. Ventricles and sulci are slightly prominent for the patient age. IMPRESSIONS: 1. Scattered punctate white matter changes slightly more prominent on the current examination. Intens ity and size may be increasing. One cerebellar peduncle finding may have resolved from prior examinat ion. Multiple sclerosis should be considered. 2. Old stable cortical infarct right occipital lobe.
== END | disposition home or self-care (01) ==
LOC: RADMRIMAIN 12:52
PROVIDERS: ATTEND Psychiatry & Neurology Neurology
DX: Z09 Encounter for follow-up examination after completed treatment for conditions other than malignant neoplasm (principal); R90.89 Other abnormal findings on diagnostic imaging of central nervous system; Z86.73 Personal history of transient ischemic attack (TIA), and cerebral infarction without residual deficits
CPT/HCPCS: 70551

== ENCOUNTER 2018-05-26 10:57 | Emergency (ER) | payer MEDICARE, BC ==
[2018-05-26 11:04] VITALS: TEMP 98.3
[2018-05-26] MEDS ORDERED: SODIUM CHLORIDE 0.9% 1,000 ML IV STA (11:36)
--- NOTE | 2018-05-26 11:39 | ED ---
General Adult HPI - General Chief complaint: Neuro Symptoms/Deficit Stated complaint: EPS eval Time Seen by Provider: 05/26/18 11:00 Source: patient, EMS, RN notes reviewed Mode of arrival: EMS Limitations: altered mental status - History of Present Illness Initial comments: This is a 67-year-old female who presents emergency Department complaining of hallucinations. Patient stated that the symptoms started at 6:30 last evening. Patient states she has been seeing her son and his girlfriend at her home and they are not there. Patient states this is indicative of a stroke because she states in the past when she's had a stroke she's had these hallucinations as well. She denies any numbness or weakness in any of her extremities. Patient denies any blurred vision. Patient denies any speech disturbance. Patient denies any facial drooping that she's noted. Patient states she is under a lot of stress and sometimes it also causes her hallucinations. Patient states she has a history of diabetes hypertension high cholesterol as well as fibromyalgia and a previous stroke. Patient denies any palpitations. Patient denies any chest pain. Denies any difficulty breathing shortness of breath. Patient denies any recent fever chills or cough. Patient denies abdominal pain. Patient denies nausea vomiting diarrhea. Patient states she typically has swelling to both of her legs but she thinks it's a little worse today. - Related Data Home Medications Medication Instructions Recorded Confirmed Ascorbic Acid [Vitamin C] 500 mg PO DAILY 09/24/16 05/26/18 Atorvastatin [Lipitor] 40 mg PO DAILY 09/24/16 05/26/18 Clopidogrel [Plavix] 75 mg PO DAILY 09/24/16 05/26/18 Ergocalciferol (Vitamin D2) 50,000 unit PO TH 09/24/16 05/26/18 [Vitamin D2] Gabapentin [Neurontin] 300 mg PO TID 09/24/16 05/26/18 Metoprolol Tartrate [Lopressor] 75 mg PO BID 09/24/16 05/26/18 Multivitamins, Thera [Multivitamin 1 tab PO DAILY 09/24/16 05/26/18 (formulary)] Potassium Chloride [K-Tab ER] 10 meq PO BID 09/24/16 05/26/18 Vitamin E 100 unit PO DAILY 09/24/16 05/26/18 traZODone HCL [Desyrel] 100 mg PO HS 09/24/16 05/26/18 metFORMIN HCL [Glucophage] 500 mg PO DAILY 12/31/16 05/26/18 Morphine Sulfate ER [Ms Contin 30 mg PO Q12HR 02/19/17 05/26/18 30Mg] Morphine Sulfate Ir [Msir] 30 mg PO DAILY PRN 04/20/17 05/26/18 Aspirin EC [Ecotrin Low Dose] 81 mg PO DAILY 05/26/18 05/26/18 Krill Oil 500 mg PO MOTUWETH 05/26/18 05/26/18 Levothyroxine Sodium [Synthroid] 100 mcg PO DAILY 05/26/18 05/26/18 Losartan/Hydrochlorothiazide 1 tab PO DAILY 05/26/18 05/26/18 [Hyzaar 100-12.5 Tablet] amLODIPine [Norvasc] 10 mg PO DAILY 05/26/18 05/26/18 clonazePAM [KlonoPIN] 1 mg PO HS 05/26/18 05/26/18 Allergies Allergy/AdvReac Type Severity Reaction Status Date / Time ibuprofen [From Motrin] Allergy Unknown WAS TOLD Verified 05/26/18 11:[address] NOT TO TAKE- BECAUSE OF HER KIDNEYS diclofenac [From Arthrotec] Allergy Unknown Verified 05/26/18 11:32 misoprostol [From Arthrotec] Allergy Unknown Verified 05/26/18 11:32 milk AdvReac Abdominal Verified 05/26/18 11:32 Pain phenytoin [From Dilantin] AdvReac Rash/Hives Verified 05/26/18 11:32 Review of Systems ROS Statement: Those systems with pertinent positive or pertinent negative responses have been documented in the HPI. ROS Other: All systems not noted in ROS Statement are negative. Past Medical History Past Medical History: CVA/TIA, Diabetes Mellitus, Fibromyalgia, Hyperlipidemia, Hypertension, Osteoarthritis (OA), Renal Disease, Sleep Apnea/CPAP/BIPAP, Thyroid Disorder Additional Past Medical History / Comment(s): CVA 2012 requiring intubation mechanical ventilation and at that time the patient was told to have a difficult airway, seizure x1 after stroke., shingles, peripheral neuropathy, no c-pap machine, hypothyroidism, degenerative arthritis., Back pain, sees chiropractor.,states looses her voice- raspy, sob at times., states 60 % kidney function ., STATES RIGHT LEG DRAGS WHEN SHE IS TIRED. History of Any Multi-Drug Resistant Organisms: None Reported Past Surgical History: Cholecystectomy, Hernia Repair, Hysterectomy, Joint Replacement Additional Past Surgical History / Comment(s): Left Knee surgery as child, right shoulder partial replacement, carpal tunnel right and left, Hiatal Hernia repair. EGD, colonoscopy Past Anesthesia/Blood Transfusion Reactions: Previous Problems w/ Anesthesia Additional Past Anesthesia/Blood Transfusion Reaction / Comment(s): states told "difficult intubation" SHE STATES THE DIFFICULT INTUBATION WAS AFTER HER STROKE . Past Psychological History: Anxiety, Bipolar, Depression Smoking Status: Never smoker Past Alcohol Use History: None Reported Past Drug Use History: None Reported - Past Family History Brother(s) Family Medical History: CVA/TIA, Myocardial Infarction ([place]) Additional Family Medical History / Comment(s): [place] x2 Mother Family Medical History: Cancer Additional Family Medical History / Comment(s): ovarian cancer General Exam - General Exam Comments Initial Comments: GENERAL: Patient is well-developed and well-nourished. Patient is nontoxic and well- hydrated and is in no acute distress. ENT: Neck is soft and supple. No significant lymphadenopathy is noted. Oropharynx is clear. Moist mucous membranes. Neck has full range of motion without eliciting any pain. EYES: The sclera were anicteric and conjunctiva were pink and moist. Extraocular movements were intact and pupils were equal round and reactive to light. Eyelids were unremarkable. PULMONARY: Unlabored respirations. Good breath sounds bilaterally. No audible rales rhonchi or wheezing was noted. CARDIOVASCULAR: There is a regular rate and rhythm without any murmurs gallops or rubs. ABDOMEN: Soft and nontender with normal bowel sounds. No palpable organomegaly was noted. There is no palpable pulsatile mass. SKIN: Skin is clear with no lesions or rashes and otherwise unremarkable. NEUROLOGIC: Patient is alert and oriented x3. Cranial nerves II through XII are grossly intact. Motor and sensory are also intact. Normal speech, volume and content. Symmetrical smile. MUSCULOSKELETAL: Normal extremities with adequate strength and full range of motion. Bilateral edema. LYMPHATICS: No significant lymphadenopathy is noted PSYCHIATRIC: Patient is having visual hallucinations. Patient is not complaining of any suicidal homicidal ideations. Limitations: altered mental status Course Vital Signs 05/26/18 05/26/18 05/26/18 10:58 12:00 12:52 Temperature 98.3 F Pulse Rate 62 74 69 Respiratory 16 18 18 Rate Blood Pressure 96/43 96/83 88/45 O2 Sat by Pulse 97 93 L 96 Oximetry Medical Decision Making - Medical Decision Making EKG shows sinus rhythm with occasional PVC at a rate of 69 bpm OH interval 160 QRS is 86 QT interval 396 QTC is 424 per patient's EKG shows no ST segment elevation or depression or T wave abnormalities are noted. Computed tomography scan shows a acute versus subacute infarct in the parietal region. Dr. Monteiro was called when we call a code stroke. He determined the patient needed aspirin and an MRI and wanted the patient transferred to [facility]. I spoke with [facility] ER and they agreed to accept the patient we transfer the patient. Patient's NIH remained 0 throughout her stay. Patient blood pressure dropped a little so she was given a liter of fluid and he continued to be in the low 90s another liter of fluid was given. - Lab Data Result diagrams: 05/26/18 11:25 05/26/18 11:25 Lab Results 05/26/18 05/26/18 05/26/18 Range/Units 11:25 11:25 11:25 WBC 9.3 (3.8-10.6) k/uL RBC 3.51 L (3.80-5.40) m/uL Hgb 10.9 L (11.4-16.0) gm/dL Hct 33.9 L (34.0-46.0) % MCV 96.7 (80.0-100.0) fL MCH 31.2 (25.0-35.0) pg MCHC 32.2 (31.0-37.0) g/dL RDW 13.7 (11.5-15.5) % Plt Count 204 (150-450) k/uL Neutrophils % 71 % Lymphocytes % 18 % Monocytes % 7 % Eosinophils % 2 % Basophils % 1 % Neutrophils # 6.6 (1.3-7.7) k/uL Lymphocytes # 1.7 (1.0-4.8) k/uL Monocytes # 0.6 (0-1.0) k/uL Eosinophils # 0.2 (0-0.7) k/uL Basophils # 0.1 (0-0.2) k/uL PT (9.0-12.0) sec INR (<1.2) APTT (22.0-30.0) sec Sodium 139 (137-145) mmol/L Potassium 5.0 (3.5-5.1) mmol/L Chloride 108 H (98-107) mmol/L Carbon Dioxide 21 L (22-30) mmol/L Anion Gap 10 mmol/L BUN 45 H (7-17) mg/dL Creatinine 2.89 H (0.52-1.04) mg/dL Est GFR (CKD-EPI)AfAm 19 (>60 ml/min/1.73 sqM) Est GFR (CKD-EPI)NonAf 16 (>60 ml/min/1.73 sqM) Glucose 85 (74-99) mg/dL Calcium 8.8 (8.4-10.2) mg/dL Total Bilirubin 1.0 (0.2-1.3) mg/dL AST 92 H (14-36) U/L ALT 41 (9-52) U/L Alkaline Phosphatase 101 (38-126) U/L Total Creatine Kinase 2541 H* (30-135) U/L CK-MB (CK-2) 22.2 H (0.0-2.4) ng/mL CK-MB (CK-2) Rel Index Troponin I 0.046 H* (0.000-0.034) ng/mL Total Protein 6.1 L (6.3-8.2) g/dL Albumin 3.8 (3.5-5.0) g/dL 05/26/18 Range/Units 11:25 WBC (3.8-10.6) k/uL RBC (3.80-5.40) m/uL Hgb (11.4-16.0) gm/dL Hct (34.0-46.0) % MCV (80.0-100.0) fL MCH (25.0-35.0) pg MCHC (31.0-37.0) g/dL RDW (11.5-15.5) % Plt Count (150-450) k/uL Neutrophils % % Lymphocytes % % Monocytes % % Eosinophils % % Basophils % % Neutrophils # (1.3-7.7) k/uL Lymphocytes # (1.0-4.8) k/uL Monocytes # (0-1.0) k/uL Eosinophils # (0-0.7) k/uL Basophils # (0-0.2) k/uL PT 10.0 (9.0-12.0) sec INR 0.9 (<1.2) APTT 22.0 (22.0-30.0) sec Sodium (137-145) mmol/L Potassium (3.5-5.1) mmol/L Chloride (98-107) mmol/L Carbon Dioxide (22-30) mmol/L Anion Gap mmol/L BUN (7-17) mg/dL Creatinine (0.52-1.04) mg/dL Est GFR (CKD-EPI)AfAm (>60 ml/min/1.73 sqM) Est GFR (CKD-EPI)NonAf (>60 ml/min/1.73 sqM) Glucose (74-99) mg/dL Calcium (8.4-10.2) mg/dL Total Bilirubin (0.2-1.3) mg/dL AST (14-36) U/L ALT (9-52) U/L Alkaline Phosphatase (38-126) U/L Total Creatine Kinase (30-135) U/L CK-MB (CK-2) (0.0-2.4) ng/mL CK-MB (CK-2) Rel Index Troponin I (0.000-0.034) ng/mL Total Protein (6.3-8.2) g/dL Albumin (3.5-5.0) g/dL Disposition Clinical Impression: Acute renal failure, CVA (cerebral vascular accident), Rhabdomyolysis Disposition: OTHER INSTITUTION NOT DEFINED Referrals: Evi Fritz MD [Primary Care Provider] - 1-2 days Time of Disposition: 13:10 - Out of Hospital Transfer - Req. Specs Out of Hospital Transfer - Requested Specifics: Other Emergency Center ( [facility]
[2018-05-26 12:03] LABS: Basophils # (A) 0.1 k/uL (0-0.2); Basophils % (A) 1 %; Eosinophils # (A) 0.2 k/uL (0-0.7); Eosinophils % (A) 2 %; HCT 33.9 % (34.0-46.0); HGB 10.9 gm/dL (11.4-16.0); Lymphocytes # (A) 1.7 k/uL (1.0-4.8); Lymphocytes % (A) 18 %; MCH 31.2 pg (25.0-35.0); MCHC 32.2 g/dL (31.0-37.0); MCV 96.7 fL (80.0-100.0); Mean Platelet Volume 6.9; Monocytes # (A) 0.6 k/uL (0-1.0); Monocytes % (A) 7 %; Neutrophils # (A) 6.6 k/uL (1.3-7.7); Neutrophils % (A) 71 %; Platelet Count 204 k/uL (150-450); RBC 3.51 m/uL (3.80-5.40); RDW 13.7 % (11.5-15.5); WBC 9.3 k/uL (3.8-10.6)
[2018-05-26 12:07] VITALS: RESP 18
[2018-05-26 12:08] LABS: INR 0.9 (<1.2)
[2018-05-26 12:10] LABS: Albumin 3.8 g/dL (3.5-5.0); Calcium 8.8 mg/dL (8.4-10.2); Total Protein 6.1 g/dL (6.3-8.2)
--- NOTE | 2018-05-26 12:12 | CT ---
EXAMINATION TYPE: CT brain wo con DATE OF EXAM: 05/26/2018 COMPARISON: 12/18/2011 HISTORY: 67-year-old female EPS Eval, Neuro deficits TECHNIQUE: Examination was done in axial plane without intravenous contrast. Coronal and sagittal r econstructions performed. CT DLP: 1123.4 mGycm Automated exposure control for dose reduction was used. FINDINGS: There is focal loss of segura-white matter differentiation with associated hypodensity in the right par amedian anterior parietal lobe at the vertex, or first axial image 46, coronal image 47, and sagittal image 39. Mild patchy white matter hypodensities suggesting changes of chronic small vessel ischemic disease. No evidence for acute intracranial hemorrhage, mass, mass effect, midline shift, or extra-axial fluid collection. No hydrocephalus. No effacement of basal subarachnoid cisterns. Rightward nasal septal deviation. Paranasal sinuses and mastoid air cells are well pneumatized. Orbit s and globes are intact. IMPRESSION: Findings suggest acute versus subacute infarct right paramedian anterior parietal lobe. Correlate as to time since onset of symptoms. No evidence for acute intracranial hemorrhage or midline shift. Find ings called to Dr. Couch in the ER at 12:07 PM.
--- NOTE | 2018-05-26 12:23 | XR ---
EXAMINATION TYPE: XR chest 2V DATE OF EXAM: 05/26/2018 COMPARISON: Prior chest x-ray dated 07/07/2017 HISTORY: Altered mental status TECHNIQUE: Frontal and lateral views of the chest are obtained. FINDINGS: There are overlying cardiac leads and the patient is rotated. Prominent lung volumes may be indicative of underlying COPD. There is no focal air space opacity, pleural effusion, or pneumothora x seen. The cardiac silhouette size is within normal limits. Degenerative disc changes are present in the spine, slight spinal curvature. The osseous structures are intact. IMPRESSION: No acute cardiopulmonary process.
[2018-05-26 12:31] LABS: Creatine Kinase MB 22.2 ng/mL (0.0-2.4)
[2018-05-26] MEDS ORDERED: ASPIRIN 81 MG PO STA (12:44)
[2018-05-26] MEDS ORDERED: SODIUM CHLORIDE 0.9% 1,000 ML IV ONE (12:53)
[2018-05-26 12:59] LABS: Troponin I 0.046 ng/mL (0.000-0.034)
[2018-05-26 13:16] VITALS: BP 102/55; PULSE 76
== END 2018-05-26 13:33 | disposition other institution (70) ==
LOC: EC 10:57
DX: I63.9 Cerebral infarction, unspecified (principal); M62.82 Rhabdomyolysis; N17.9 Acute kidney failure, unspecified; R29.700 NIHSS score 0; R44.3 Hallucinations, unspecified; E11.42 Type 2 diabetes mellitus with diabetic polyneuropathy; M79.7 Fibromyalgia; E78.5 Hyperlipidemia, unspecified; I10 Essential (primary) hypertension; M19.90 Unspecified osteoarthritis, unspecified site; E78.00 Pure hypercholesterolemia, unspecified; E03.9 Hypothyroidism, unspecified; F31.9 Bipolar disorder, unspecified; F41.9 Anxiety disorder, unspecified; Z79.01 Long term (current) use of anticoagulants; Z79.84 Long term (current) use of oral hypoglycemic drugs; Z79.82 Long term (current) use of aspirin; Z79.899 Other long term (current) drug therapy; Z79.891 Long term (current) use of opiate analgesic; Z88.6 Allergy status to analgesic agent; Z88.8 Allergy status to other drugs, medicaments and biological substances; Z91.011 Allergy to milk products; Z96.611 Presence of right artificial shoulder joint
CPT/HCPCS: 36415; 70450; 71046; 80053; 82550; 82553; 84484; 85025; 85610; 85730; 93005; 96360; 96361; 99285

== ENCOUNTER → 2018-06-30 | Outpatient (CLI) | payer MEDICARE, BC ==
--- NOTE | 2018-07-01 11:42 | MR ---
EXAMINATION TYPE: MR brain w con DATE OF EXAM: 06/30/2018 COMPARISON: 05/28/2018 MRI brain, CT brain 05/26/2018 HISTORY: History of stroke / Right parietal stroke CONTRAST: Performed utilizing 10 mL intravenous Gadavist gadolinium contrast. TECHNIQUE: Multiplanar, multiecho imaging on a 3.0 Analia magnet is performed through the brain. Stud y is performed within 24 hours of arrival to the hospital. The craniovertebral junction is normal. The pituitary is normal. No obvious signal abnormality on postcontrast T1-weighted imaging is evident within the deep white ma tter. Ventricles and sulci are appropriate for the patient age. Minimal enhancement may be on the on the posterior medial right occipital lobe gyrus. This is diminis hed compared to previous exam and could be some resolving luxury perfusion. Volume involved is dimini shed 05/26/2018. IMPRESSIONS: 1. Changes suggestive for subacute to old right medial occipital lobe infarct. Some very minimal reso lving enhancement may be along the posterior portion. This area is diminished in intensity and size f rom the comparison study 05/28/2018.
== END | disposition home or self-care (01) ==
LOC: RADMRIMAIN 14:25
PROVIDERS: ATTEND Psychiatry & Neurology Neurology
DX: Z09 Encounter for follow-up examination after completed treatment for conditions other than malignant neoplasm (principal); Z86.73 Personal history of transient ischemic attack (TIA), and cerebral infarction without residual deficits; Z13.89 Encounter for screening for other disorder
CPT/HCPCS: 82565; 70552; 36415; A9585

== ENCOUNTER → 2019-10-17 | Outpatient (CLI) | payer MEDICARE ==
--- NOTE | 2019-10-18 07:22 | MR ---
EXAMINATION TYPE: MR angio head wo con DATE OF EXAM: 10/17/2019 COMPARISON: NONE HISTORY: Aneurysm of basilar artery, dizziness TECHNIQUE: Utilizing 3-D [id number] intracranial MRA of the [place] was performed. FINDINGS: The vertebrobasilar and carotid systems are patent. Left vertebral artery is dominant. Posterior cere bral artery in the right originates from the anterior circulation there is nodular prominence at the origin of the right posterior communicating artery measuring diameter of 2 mm suspicious for aneurysm anterior communicating region and MCA bifurcations demonstrate no sizable aneurysm. There is a 3 mm area of nodular fullness involving the carotid siphon on the left suspicious for small aneurysm. Nodular prominence of the tip of the basilar artery could be related to absence of the right posterio r cerebral artery. IMPRESSION: 1. Findings are suspicious for a distal left ICA carotid siphon 3 mm aneurysm. 2. Prominence the origin of the right posterior communicating artery measuring 2 mm also suspicious f or aneurysm. Follow-up 6 month MRA recommended. 3. 2 mm nodular prominence of the tip of the basilar artery. This could be related to a tiny aneurysm although there is absence of the posterior cerebral artery on the right which also could account for the finding. Recommend short-term follow-up to confirm stability.
== END | disposition home or self-care (01) ==
LOC: RADMRIMAIN 14:28
PROVIDERS: ATTEND Psychiatry & Neurology Neurology
DX: I72.5 Aneurysm of other precerebral arteries (principal)
CPT/HCPCS: 70544

== ENCOUNTER → 2020-10-10 | Outpatient (CLI) | payer MEDICARE ==
--- NOTE | 2020-10-10 12:21 | MR ---
EXAMINATION TYPE: MR angio head wo con DATE OF EXAM: 10/10/2020 COMPARISON: MRA brain October 17, 2019 HISTORY: Follow up study, Known aneurysm. Compare to see if change in size or new areas of concern. TECHNIQUE: Time of flight images focusing on the [place] were performed without contrast.. 2-D and 3-D postprocessing imaging is performed on independent workstation and reviewed. FINDINGS: Codominant vertebrobasilar system redemonstrated. Vertebral artery is patent to basilar ashok ction. Patent left posterior communicating artery. Hypoplastic right posterior communicating artery. Filling of right P2 segment due to patent right-sided posterior communicating artery. Stable slight a symmetric 2 mm prominence at origin of right posterior communicating artery image 107. Stable promine nce at basilar tip continuation with left posterior cerebral artery axial image 111. Images of the anterior circulation showed tortuous course to the distal internal carotid arteries xavi aterally. Patent anterior communicating artery. No significant focal stenosis or new aneurysm is iden tified. 3 mm prominence distal left internal carotid artery favors tortuous course near image 102, st able small cylindrical aneurysm not excluded. IMPRESSION: Overall stable findings, no new or enlarging aneurysms identified.
== END | disposition home or self-care (01) ==
LOC: RADMRIMAIN 11:01
PROVIDERS: ATTEND Psychiatry & Neurology Neurology
DX: I67.1 Cerebral aneurysm, nonruptured (principal)
CPT/HCPCS: 70544

== ENCOUNTER 2021-03-10 13:10 | Day surgery (SDC) | payer MEDICARE ==
[2021-03-07 10:49] VITALS: BMI 41.1
[~2021-03-10 13:10] MED LIST changes: -ALBUTEROL NEB (CONC) 2.5 MG/0.5 ML INHALATION ONE; -LACTATED RINGERS 1,000 ML IV ONE; +LIDOCAINE 1% (10MG/ML) FOR IV START INTRADERMA PRN; -LIDOCAINE 1% 20 ML VIAL (10MG/ML) FOR IV START INTRADERMA PRN; -LIDOCAINE 2% (PF) 20 MG/ML 2 ML AMP INHALATION ONE; -Pre Op ABX Message 1 EACH MISC MISCELLANE ONE
[2021-03-10 13:54] VITALS: TEMP 97.2
[2021-03-10 13:55] LABS: Glucose,Whole Blood 113 mg/dL (75-99)
[2021-03-10] MEDS ORDERED: KETAMINE 10 MG/ML 20 ML VIAL ONE (14:31)
[2021-03-10] MEDS ORDERED: LIDOCAINE 1% INJ 10MG/ML (20 ML MDV) ONE (14:31)
[2021-03-10] MEDS ORDERED: PROPOFOL 10 MG/ML 20 ML VIAL IV ONE (14:31)
[2021-03-10] MEDS ORDERED: GLYCOPYRROLATE 0.2 MG/ML 2 ML VIAL ONE (14:31)
--- NOTE | 2021-03-10 14:34 | P.GSHP ---
History of Present Illness H&P Date: 03/10/21 Chief Complaint: Epigastric pain, This is a 70-year-old female who's had complaints of epigastric pain. Patient presents today for EGD. Past Medical History Past Medical History: CVA/TIA, Diabetes Mellitus, Fibromyalgia, GERD/Reflux, Hyperlipidemia, Hypertension, Osteoarthritis (OA), Renal Disease, Sleep Apnea/CPAP/BIPAP, Thyroid Disorder Additional Past Medical History / Comment(s): CVA 2012 requiring intubation mechanical ventilation and at that time the patient was told to have an issue w/airway-"tracheobronchmalacia", seizure x1 after stroke., couple TIA's & another stroke since then, shingles, peripheral neuropathy, no c-pap machine, hypothyroidism, degenerative arthritis., Back pain, states her voice has been raspy since having covid in July 2020, had pneumonia end of December, sob at times., still w/cough & hoarseness, increasing acid reflux, states 60 % kidney function, STATES RIGHT LEG DRAGS WHEN SHE IS TIRED, has brain aneurysm-Dr. Degroot is monitoring History of Any Multi-Drug Resistant Organisms: None Reported Past Surgical History: Cholecystectomy, Hernia Repair, Hysterectomy, Joint Replacement Additional Past Surgical History / Comment(s): Left Knee surgery as child, right shoulder partial replacement, carpal tunnel right and left, Hiatal Hernia repair. EGD, colonoscopy Past Anesthesia/Blood Transfusion Reactions: Previous Problems w/ Anesthesia Additional Past Anesthesia/Blood Transfusion Reaction / Comment(s): states told "difficult intubation" SHE STATES THE DIFFICULT INTUBATION WAS AFTER HER STROKE & states there was damage caused from intubation @that time Smoking Status: Never smoker - Past Family History Brother(s) Family Medical History: CVA/TIA, Myocardial Infarction ([place]) Additional Family Medical History / Comment(s): [place] x2 Mother Family Medical History: Cancer Additional Family Medical History / Comment(s): ovarian cancer Medications and Allergies Home Medications Medication Instructions Recorded Confirmed Type Ascorbic Acid [Vitamin C] 500 mg PO DAILY 09/24/16 03/10/21 History Atorvastatin [Lipitor] 40 mg PO DAILY 09/24/16 03/10/21 History Clopidogrel [Plavix] 75 mg PO DAILY 09/24/16 03/07/21 History Ergocalciferol (Vitamin D2) 50,000 unit PO TH 09/24/16 03/10/21 History [Vitamin D2] Metoprolol Tartrate [Lopressor] 50 mg PO TID 09/24/16 03/10/21 History Multivitamins, Thera [Multivitamin 1 tab PO DAILY 09/24/16 03/10/21 History (formulary)] Potassium Chloride [K-Tab ER] 10 meq PO BID 09/24/16 03/10/21 History traZODone HCL [Desyrel] 100 mg PO BID 09/24/16 03/10/21 History metFORMIN HCL [Glucophage] 500 mg PO DAILY 12/31/16 03/10/21 History Morphine Sulfate ER [Ms Contin 15 mg PO Q12HR 02/19/17 03/10/21 History 30Mg] Aspirin EC [Ecotrin Low Dose] 81 mg PO DAILY 05/26/18 03/07/21 History Levothyroxine Sodium [Synthroid] 100 mcg PO DAILY 05/26/18 03/10/21 History Losartan/Hydrochlorothiazide 1 tab PO DAILY 05/26/18 03/10/21 History [Hyzaar 100-12.5 Tablet] amLODIPine [Norvasc] 10 mg PO DAILY 05/26/18 03/10/21 History clonazePAM [KlonoPIN] 1 mg PO HS 05/26/18 03/10/21 History Allergies Allergy/AdvReac Type Severity Reaction Status Date / Time ibuprofen [From Motrin] Allergy Unknown WAS TOLD Verified 03/10/21 13:[address] NOT TO TAKE- BECAUSE OF HER KIDNEYS diclofenac [From Arthrotec] Allergy Unknown Verified 03/10/21 13:35 misoprostol [From Arthrotec] Allergy Unknown Verified 03/10/21 13:35 milk AdvReac Abdominal Verified 03/10/21 13:35 Pain phenytoin [From Dilantin] AdvReac Rash/Hives Verified 03/10/21 13:35 Surgical - Exam Vital Signs Temp Pulse Resp BP Pulse Ox 97.2 F L 74 18 149/66 93 L 03/10/21 13:51 03/10/21 13:51 03/10/21 13:51 03/10/21 13:51 03/10/21 13:51 - General well developed, well nourished, no distress - Eyes PERRL - ENT normal pinna - Neck no masses - Respiratory normal expansion - Cardiovascular Rhythm: regular - Abdomen Abdomen: soft, non tender Results - Labs Abnormal Lab Results - Last 24 Hours (Table) 03/10/21 Range/Units 13:52 POC Glucose (mg/dL) 113 H (75-99) mg/dL Assessment and Plan Assessment: GERD, epigastric pain. We'll perform EGD.
--- NOTE | 2021-03-10 15:11 | P.OP ---
Date of Procedure: 03/10/21 Preoperative Diagnosis: GERD Epigastric pain Postoperative Diagnosis: Minimal antral gastritis No significant hiatal hernia Esophageal biopsy pathology pending Procedure(s) Performed: EGD Anesthesia: MAC Surgeon: Carlos Childers Pathology: other (Esophagus) Condition: stable Disposition: PACU Description of Procedure: The patient's placed on the endoscopy table in the lateral position. She received IV sedation. The gastroscope placed oropharynx passed in the esophagus and stomach. Scope was placed through the pylorus. The first and second portion of duodenum appeared normal. Scope was brought back the antrum and this was mildly inflamed. The inflammation was quite minimal. Scope was retroflexed the remainder some appeared normal. There was no significant hiatal hernia. The GE junction was at 40 cm. The distal esophagus appeared normal however and a biopsies performed. The proximal esophagus appeared normal. Scope was withdrawn for patient.
[2021-03-10] MEDS ORDERED: BENZOCAINE SPRAY 1 CAN TOPICAL ONE (15:12)
[2021-03-10 15:57] VITALS: BP 148/80; PULSE 75; RESP 18
== END 2021-03-10 16:08 | disposition home or self-care (01) ==
LOC: ORWHC2ENDO 13:10
PROVIDERS: ATTEND Surgery
DX: K29.70 Gastritis, unspecified, without bleeding (principal); E11.42 Type 2 diabetes mellitus with diabetic polyneuropathy; E78.5 Hyperlipidemia, unspecified; G47.30 Sleep apnea, unspecified; I10 Essential (primary) hypertension; K21.9 Gastro-esophageal reflux disease without esophagitis; M19.90 Unspecified osteoarthritis, unspecified site; M79.7 Fibromyalgia; Z79.02 Long term (current) use of antithrombotics/antiplatelets; Z79.82 Long term (current) use of aspirin; Z79.84 Long term (current) use of oral hypoglycemic drugs; Z79.899 Other long term (current) drug therapy; Z82.49 Family history of ischemic heart disease and other diseases of the circulatory system; Z86.16 Personal history of COVID-19; Z86.73 Personal history of transient ischemic attack (TIA), and cerebral infarction without residual deficits; Z88.6 Allergy status to analgesic agent; Z90.49 Acquired absence of other specified parts of digestive tract
CPT/HCPCS: 43239; J2001; J2704; 88305

== ENCOUNTER → 2021-11-18 | Outpatient (CLI) | payer MEDICARE ==
--- NOTE | 2021-11-18 19:59 | MR ---
EXAMINATION TYPE: MR angio head wo con DATE OF EXAM: 11/18/2021 COMPARISON: MR angiogram 10/10/2020 HISTORY: F/U brain aneurysm TECHNIQUE: Time of flight images focusing on the [place] were performed without contrast. Th ree-dimensional reconstructions were performed on an alternate workstation and reviewed FINDINGS: Persistent origin of the posterior cerebral artery is noted. [place] shows a stable appearance. No evident dissection, embolus, stenosis. The previously described foci of possib le aneurysm show no interval change. Anterior and posterior circulation is intact. IMPRESSION: Stable exam. No interval change.
== END | disposition home or self-care (01) ==
LOC: RADMRIMAIN 14:13
PROVIDERS: ATTEND Psychiatry & Neurology Neurology
DX: I67.1 Cerebral aneurysm, nonruptured (principal)
CPT/HCPCS: 70544

== ENCOUNTER → 2022-05-29 | Outpatient (CLI) | payer MEDICARE ==
--- NOTE | 2022-05-29 14:20 | BD ---
EXAMINATION TYPE: Axial Bone Density DATE OF EXAM: 05/29/2022 COMPARISON: CLINICAL HISTORY: 71 years year old Female. ICD-10 CODE: C50.912 LT BREAST CA Height: 63 Weight: 219.2 FRAX RISK QUESTIONS: Alcohol (3 or more units per day): NO Family History (Parent hip fracture): NO Glucocorticoids (More than 3mos): NO History of Fracture in Adulthood: NO Secondary Osteoporosis: 1. Type 1 Diabetes: NO 2. Hyperthyroidism: NO 3. Menopause before 45: NO 4. Malnutrition: NO 5. Chronic liver disease: NO Rheumatoid Arthritis: NO Current Tobacco Use: NO RISK FACTORS HISTORY OF: Hip Fracture (Right/Left): NO Spine Fracture: NO History of Wrist Fracture: NO Surgery to Spine/Hip(right/left)/Wrist (right/left): NO Family History of Osteoporosis: MOTHER, MATERNAL GRANDMOTHER Active: NO Diet low in dairy products/other sources of calcium: YES Postmenopausal woman: YES Take estrogen and/or progesterone medications: NO Lost more than 2 inches in height since high school: NO Frequent falls: NO Poor Health: NO Hyperparathyroidism: NO Adrenal Insufficiency: NO MEDICATIONS: Prednisone or other steroids: Thyroid Medications: LEVOTHYROXINE PAST 45 YEARS Osteoporosis Medications: RISEDRONATE WEEKLY PILL, VIT D 50,000IU ONCE WEEKLY How Long: PAST 5 YEARS Additional Medications: FARZIGA, POTASSIUM, LOSARTAN, LEVOTHYROXINE, BP MEDS X5, METFORMIN, FUROSEMID E, ATORVASTATIN, MULTI VIT., VIT C, LT BREAST CA, STAGE 2022 EXAM MEASUREMENTS: Bone mineral densitometry was performed using the [employer] System. Bone mineral density as measured about the Lumbar spine is: ----- L1-L4(G/cm2): 1.363 T Score Values are as follows: ----- L1: -0.2 ----- L2: 1.2 ----- L3: 2.8 ----- L4: 1.8 ----- L1-L4: 1.5 BASELINE STUDY Bone mineral density about the R hip (g/cm2): 0.828 Bone mineral density about the L hip (g/cm2): 0.829 T Score values are as follows: -----R Neck: -1.5 -----L Neck: -1.5 -----R Total: -0.1 -----L Total: -0.2 BASELINE STUDY FRAX%s: The graph provided illustrates a 9.6% chance for a major osteoporotic fx and a 1.5% chance fo r the hips probability for fx in 10 years time. IMPRESSION: Osteopenia (T Score between -2.5 and -1). There is slightly increased risk of fracture and the patient may be considered for treatment. Re-Screen 2-5 years. NOTE: T-SCORE=SD OF THE YOUNG ADULT MEAN.
== END | disposition home or self-care (01) ==
LOC: RADBDWWP 13:00
PROVIDERS: ATTEND Internal Medicine
DX: Z13.820 Encounter for screening for osteoporosis (principal); M85.89 Other specified disorders of bone density and structure, multiple sites; Z78.0 Asymptomatic menopausal state
CPT/HCPCS: 77080

== ENCOUNTER → 2022-11-16 | Outpatient (CLI) | payer MEDICARE ==
--- NOTE | 2022-11-16 15:28 | MR ---
EXAMINATION TYPE: MR angio head wo con DATE OF EXAM: 11/16/2022 2:03 PM CLINICAL INDICATION:Female, 72 years old with history of I67.1; F/U comparison for aneurysm. COMPARISON: 11/18/2021 Technical: 3-D [id number] Axial with MIP reconstruction created on a separate workstation.. IV Contrast: None cc Findings: Vertebral arteries: The vertebral arteries are patent. Vertebral arteries are: Codominant. Basilar artery: The basilar artery is intact. The basilar artery bifurcation is normal. Internal Carotid arteries: The cervical, petrous, cavernous and supraclinoid segments are normal. CHIP: Patent with no evidence of aneurysm. ACOM: Present without evidence of aneurysm. MCA: Patent with no evidence of aneurysm. HEEL NAIL RASPER: Patent with no evidence of aneurysm. origins of the right posterior cerebral artery. PCOM: Hypoplastic left, origin right. Stable dilation of the origin of the left posterior cereb ral artery with saccular aneurysm measuring 2-3 mm. Origin of the right posterior cerebral artery is not significantly changed. No definitive aneurysm at this site. 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
== END | disposition home or self-care (01) ==
LOC: RADMRIMAIN 13:10
PROVIDERS: ATTEND Psychiatry & Neurology Neurology
DX: I67.1 Cerebral aneurysm, nonruptured (principal)
CPT/HCPCS: 70544

== ENCOUNTER → 2023-01-08 | Outpatient (CLI) | payer MEDICARE ==
--- NOTE | 2023-01-08 13:58 | MM ---
Reason for Exam: Hx of breast cancer, conservation therapy. Last mammogram was performed 1 year(s) and 2 month(s) ago. Patient History: Menarche at age 10. First Full-Term at age 17. Left ovary removed at age 45. Right ovary removed at age 45. Hysterectomy at age 45. Postmenopausal. Breast cancer, left, age 71. Estrogen for 6 years from age 39 until age 45. 04/10/2022, Stereotactic Core Biopsy - 3D on the Left side. 06/09/2022, MG pre op needle loc LT - 2 on the Left side. 2022, Radiation Therapy on the left side. Prior Study Comparison: 11/19/2015 Bilateral Screening Mammogram, [facility]. 08[facility]03/2017 [facility] 12/03/2021 Bilateral Diagnostic Mammogram, [facility]. 12/03/2021 Left Diagnostic Ultrasound, [facility]. Tissue Density: There are scattered fibroglandular densities. Findings: Analyzed By CAD. No new suspicious mass or group of calcifications within either breast. Posttreatment changes of the left breast with skin thickening. Overall Assessment: Benign, BI-RAD 2 Management: Diagnostic Mammogram of both breasts in 1 year. A clinical breast exam by your physician is recommended on an annual basis and results should be correlated with mammographic findings. This exam should not preclude additional follow-up of suspicious palpable abnormalities. Results were given to the patient verbally at the time of exam. Note on Claudia scores and lifetime risk: 1. A Claudia score greater than 3% is considered moderate risk. If this is the case, consider specialist referral to assess eligibility for a risk reducing agent. If overall lifetime risk for the development of breast cancer is 20% or higher, the patient may qualify for future screening with alternating mammogram and breast MRI. Electronically signed and approved by: Abebe Vaughan D.O.
== END | disposition home or self-care (01) ==
LOC: RADMAMWWP 09:59
PROVIDERS: ATTEND Radiology Radiation Oncology
DX: D05.12 Intraductal carcinoma in situ of left breast (principal); Z17.0 Estrogen receptor positive status [ER+]; Z78.0 Asymptomatic menopausal state; Z85.3 Personal history of malignant neoplasm of breast
CPT/HCPCS: 77066; G0279; 77062

== ENCOUNTER → 2023-12-31 | Outpatient (CLI) | payer MEDICARE ==
--- NOTE | 2024-01-20 11:49 | MR ---
Site ID synapse default Patient Melissa Gamble A ID [id number] Age/Gender: 73Y, F Order # N/A Procedure MR angio head wo con Date 12/31/2023 5:54:10 PM EXAMINATION TYPE: MR angio head wo con DATE OF EXAM: 12/31/2023 COMPARISON: MRA head 11/16/2022, 11/18/2021, 10/10/2020, 10/17/2019 HISTORY: Brain aneurysm, follow-up TECHNIQUE: Time of flight images focusing on the [place] of [place] were performed without contrast. Findings: Vertebral arteries: The vertebral arteries are patent. Vertebral arteries are: Codominant. Basilar artery: The basilar artery is intact. The basilar artery bifurcation is normal. Internal Carotid arteries: The cervical, petrous, cavernous and supraclinoid segments are normal. CHIP: Patent with no evidence of aneurysm. ACOM: Present without evidence of aneurysm. MCA: Patent with no evidence of aneurysm. [place]: Patent with no evidence of aneurysm. origins of the right posterior cerebral artery. PCOM: Hypoplastic left, origin right. Stable dilation of the origin of the left posterior cereb ral artery with saccular aneurysm measuring 2.7 mm (Series 301, image 107). Origin of the right poste rior cerebral artery is not significantly changed. No definitive aneurysm at this site. 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
== END | disposition home or self-care (01) ==
LOC: RADMRIMAIN 06:35
PROVIDERS: ATTEND Psychiatry & Neurology Neurology
DX: I67.1 Cerebral aneurysm, nonruptured (principal)
CPT/HCPCS: 70544

== ENCOUNTER → 2024-03-01 | Outpatient (CLI) | payer MEDICARE ==
--- NOTE | 2024-03-01 10:56 | MM ---
Reason for Exam: Hx of breast cancer, conservation therapy. Last mammogram was performed 1 year(s) and 1 month(s) ago. Patient History: Menarche at age 10. First Full-Term at age 17. Left ovary removed at age 45. Right ovary removed at age 45. Hysterectomy at age 45. Postmenopausal. Breast cancer, left, age 71. Estrogen for 6 years from age 39 until age 45. 04/10/2022, Stereotactic Core Biopsy - 3D on the Left side. 06/09/2022, MG pre op needle loc LT - 2 on the Left side. 2022, Radiation Therapy on the left side. Maternal cousin had breast cancer. Tissue Density: There are scattered areas of fibroglandular density. Findings: Analyzed By CAD. No evidence for mass. Postoperative distortion left breast. No suspicious microcalcifications. Overall Assessment: Benign, BI-RAD 2 Management: Screening Mammogram of both breasts in 1 year. . Results were given to the patient verbally at the time of exam. Patient should continue monthly self-breast exams. A clinical breast exam by your physician is recommended on an annual basis. This exam should not preclude additional follow-up of suspicious palpable abnormalities. Note on Claudia scores and lifetime risk: 1. A Claudia score greater than 3% is considered moderate risk. If this is the case, consider specialist referral to assess eligibility for a risk reducing agent. 2. If overall lifetime risk for the development of breast cancer is 20% or higher, the patient may qualify for future screening with alternating mammogram and breast MRI. [facility], , 03/01/2024 10:53 AM. Electronically signed and approved by: Marcell Banks M.D. Radiologis
== END | disposition home or self-care (01) ==
LOC: RADMAMWWP 10:33
PROVIDERS: ATTEND Radiology Radiation Oncology
CPT/HCPCS: 77062; 77066

== ENCOUNTER → 2024-09-04 | Outpatient (CLI) | payer OTHER ==
--- NOTE | 2024-09-04 12:43 | XR ---
EXAMINATION TYPE: XR thoracic spine 3 views complete, XR lumbosacral spine 5 views, XR shoulder compl ete 3 views LT, XR knee complete 3 views LT, XR humerus 2 views LT DATE OF EXAM: 09/04/2024 12:23 PM COMPARISON: None CLINICAL INDICATION: Female, 74 years old with history of S23.3XXA S33.5XXA S40.012A S80.02XA Contusi ons; PHH, multiple areas of pain after trip and fall. FINDINGS: Thoracic spine: Levoconvex scoliosis centered at the lower thoracic spine. 12 rib-bearing thoracic vertebral bodies. All pedicles are visualized. There is some gas within the main thoracic spine. Moderate multilevel de generative disc disease especially mid thoracic spine. Vertebral body heights are preserved. Suspect trace grade 1 anterolisthesis involving a couple levels in the upper third thoracic spine. Lumbar spine: 5 lumbar type vertebral bodies. Advanced hypertrophic facet arthropathy mid to lower lumbar spine. G rade 1 anterolisthesis L4/L5. Mild multilevel degenerative disc disease. Vertebral body heights are p reserved. Left shoulder and left humerus: There is moderate degenerative change at the AC joint. Subacromial space is preserved. Some sclerosis at the greater tuberosity. Mild degenerative spurring at the glenohumeral joint. No acute fracture, subluxation, dislocation. No elbow joint effusion. Left knee: Small knee joint effusion. Tricompartmental degenerative spurring is present. Extensor mechanism appe ars intact. At least mild narrowing of cartilage and joint space within both medial and lateral evangelina rtments. No acute fracture, subluxation, or dislocation is seen. IMPRESSION: 1. Thoracic spine: Levoconvex scoliosis lower thoracic spine. Moderate degenerative disc disease karyna cially mid thoracic line. Suspect a couple levels of degenerative trace grade 1 anterolisthesis in th e upper third thoracic spine. No vertebral compression collapse. 2. Lumbar spine: Hypertrophic facet arthropathy mid to lower lumbar spine with a degenerative grade 1 anterolisthesis L4-L5. Mild multilevel degenerative disc disease. No vertebral compression collapse. 3. Left shoulder and left humerus: Moderate AC joint OA. Mild glenohumeral joint OA. Bony changes at the greater tuberosity suggesting chronic rotator cuff tendinopathy. No acute osseous abnormality see n. 4. Left knee: At least mild tricompartmental osteoarthrosis though greatest in the medial and lateral compartments. A small knee joint effusion is nonspecific and may be reactive. If concern for interna l derangement, consider MRI. No acute osseous abnormality seen. [facility], , 09/04/2024 12:40 PM
== END | disposition home or self-care (01) ==
LOC: RADXRMAIN 11:57
PROVIDERS: ATTEND Emergency Medicine
DX: S23.3XXA Sprain of ligaments of thoracic spine, initial encounter (principal); S40.012A Contusion of left shoulder, initial encounter; S80.02XA Contusion of left knee, initial encounter; M51.34 Other intervertebral disc degeneration, thoracic region; M41.84 Other forms of scoliosis, thoracic region; M47.816 Spondylosis without myelopathy or radiculopathy, lumbar region; M51.369 Other intervertebral disc degeneration, lumbar region without mention of lumbar back pain or lower extremity pain; M17.12 Unilateral primary osteoarthritis, left knee; M19.012 Primary osteoarthritis, left shoulder; M43.15 Spondylolisthesis, thoracolumbar region; W01.0XXA Fall on same level from slipping, tripping and stumbling without subsequent striking against object, initial encounter
CPT/HCPCS: 72072; 72110